=== PATIENT | male | born 1980 | race Caucasian/White ===

== ENCOUNTER 2020-02-20 19:13 | Inpatient (IN) | payer BC ==
[~2020-02-20] VITALS: Ht 188 cm; Wt 120.1 kg
[2020-02-20] VITALS (7 sets, daily range): BP systolic 166–203; BP diastolic 101–133
--- NOTE | 2020-02-20 19:25 | PHYS DOC ---
General Adult EDM: Chief Complaint: CHEST PAIN HPI: HPI: Patient is a 39 year old male who was brought here by EMS from work due to substernal chest pain. Symptoms started about 30 minutes ago. Patient has had this pain off and on for a week. Patient denies any medical problem, he is a smoker. Patient denies cough or fever, no COVID-19 exposure he said. EMS gave patient 324 mg aspirin, and a dose of nitroglycerin on route here. Patient said the nitroglycerin reduced the pain. Review of Systems: Review of Systems: Constitutional: Denies fever or chills. [] Eyes: Denies change in visual acuity. [] HENT: Denies nasal congestion or sore throat. [] Respiratory: Denies cough or shortness of breath. [] Cardiovascular: Positive for chest pain. GI: Denies abdominal pain, nausea, vomiting, bloody stools or diarrhea. [] : Denies dysuria. [] Musculoskeletal: Denies back pain or joint pain. [] Integument: Denies rash. [] Neurologic: Denies headache, focal weakness or sensory changes. [] Endocrine: Denies polyuria or polydipsia. [] Lymphatic: Denies swollen glands. [] Psychiatric: Denies depression or anxiety. [] Heart Score: Risk Factors: Risk Factors: DM, Current or recent (<one month) smoker, HTN, HLP, family history of CAD, obesity. Risk Scores: Score 0 - 3: 2.5% MACE over next 6 weeks - Discharge Home Score 4 - 6: 20.3% MACE over next 6 weeks - Admit for Clinical Observation Score 7 - 10: 72.7% MACE over next 6 weeks - Early Invasive Strategies Current Medications: Current Medications Medications (Trade) Dose Ordered Sig/Danny Start Time Stop Time Status Last Admin Dose Admin Heparin Sodium/ Dextrose 250 ml @ 0 mls/hr CONT PRN 02/20/20 19:30 UNV Physical Exam: PE: Constitutional: Well developed, well nourished, no acute distress, non-toxic appearance. [] HENT: Normocephalic, atraumatic, bilateral external ears normal, oropharynx moist, no oral exudates, nose normal. [] Eyes: PERRLA, EOMI, conjunctiva normal, no discharge. [] Neck: Normal range of motion, no tenderness, supple, no stridor. [] Cardiovascular:Heart rate regular rhythm, no murmur [] Lungs & Thorax: Bilateral breath sounds clear to auscultation [] Abdomen: Bowel sounds normal, soft, no tenderness, no masses, no pulsatile masses. [] Skin: Warm, dry, no erythema, no rash. [] Back: No tenderness, no CVA tenderness. [] Extremities: No tenderness, no cyanosis, no clubbing, ROM intact, no edema. [] Neurologic: Alert and oriented X 3, normal motor function, normal sensory function, no focal deficits noted. [] Psychologic: Affect normal, judgement normal, mood normal. [] Current Patient Data: Labs: Laboratory Tests Test 02/20/20 19:19 02/20/20 22:22 02/21/20 01:09 White Blood Count 10.7 x10^3/uL Red Blood Count 5.10 x10^6/uL Hemoglobin 14.9 g/dL Hematocrit 43.7 % Mean Corpuscular Volume 86 fL Mean Corpuscular Hemoglobin 29 pg Mean Corpuscular Hemoglobin Concent 34 g/dL Red Cell Distribution Width 14.6 % Platelet Count 503 x10^3/uL Neutrophils (%) (Auto) 60 % Lymphocytes (%) (Auto) 26 % Monocytes (%) (Auto) 10 % Eosinophils (%) (Auto) 4 % Basophils (%) (Auto) 1 % Neutrophils # (Auto) 6.4 x10^3/uL Lymphocytes # (Auto) 2.8 x10^3/uL Monocytes # (Auto) 1.0 x10^3/uL Eosinophils # (Auto) 0.4 x10^3/uL Basophils # (Auto) 0.1 x10^3/uL Prothrombin Time 12.9 SEC Prothromb Time International Ratio 1.0 Activated Partial Thromboplast Time 31 SEC Sodium Level 140 mmol/L Potassium Level 4.0 mmol/L Chloride Level 102 mmol/L Carbon Dioxide Level 27 mmol/L Anion Gap 11 Blood Urea Nitrogen 12 mg/dL Creatinine 1.1 mg/dL Estimated GFR (Cockcroft-Gault) 74.5 BUN/Creatinine Ratio 11 Glucose Level 181 mg/dL Calcium Level 9.8 mg/dL Magnesium Level 2.2 mg/dL Total Bilirubin 0.2 mg/dL Aspartate Amino Transf (AST/SGOT) 23 U/L Alanine Aminotransferase (ALT/SGPT) 34 U/L Alkaline Phosphatase 56 U/L Troponin I Quantitative 1.991 ng/mL 16.442 ng/mL 33.819 ng/mL HZ-Gwb-Y-Type Natriuretic Peptide 276 pg/mL Total Protein 8.0 g/dL Albumin 4.1 g/dL Albumin/Globulin Ratio 1.1 Lipase 133 U/L Current Medications Medications (Trade) Dose Ordered Sig/Danny Route PRN Reason Start Time Stop Time Status Last Admin Dose Admin Heparin Sodium/ Dextrose 250 ml @ 0 mls/hr CONT PRN IV PER PROTOCOL 02/20/20 19:30 02/20/20 19:39 Heparin Sodium (Porcine) (Heparin Sodium) 10,000 unit STK-MED ONCE .ROUTE 02/20/20 19:28 02/20/20 19:28 DC Nitroglycerin/ Dextrose 250 ml @ 0 mls/hr 1X ONCE IV 02/20/20 19:30 02/20/20 19:32 DC 02/20/20 19:41 Heparin Sodium (Porcine) (Heparin Sodium) 4,000 unit 1X ONCE IV 02/20/20 19:45 02/20/20 19:46 DC 02/20/20 19:42 Iodixanol (Visipaque 320) 100 ml STK-MED ONCE .ROUTE 02/20/20 19:48 02/20/20 19:48 DC Lidocaine HCl (Lidocaine 1% 20ml Vial) 20 ml STK-MED ONCE .ROUTE 02/20/20 19:48 02/20/20 19:48 DC Heparin Sodium/ Sodium Chloride 1,000 ml @ As Directed STK-MED ONCE .ROUTE 02/20/20 19:48 02/20/20 19:48 DC Fentanyl Citrate (Fentanyl 2ml Vial) 100 mcg STK-MED ONCE .ROUTE 02/20/20 19:54 02/20/20 19:55 DC Midazolam HCl (Versed) 2 mg STK-MED ONCE .ROUTE 02/20/20 19:54 02/20/20 19:55 DC Heparin Sodium (Porcine) (Heparin Sodium) 10,000 unit STK-MED ONCE .ROUTE 02/20/20 19:55 02/20/20 19:55 DC Verapamil HCl (Verapamil) 5 mg STK-MED ONCE .ROUTE 02/20/20 19:55 02/20/20 19:55 DC Nitroglycerin (Nitroglycerin) 200 mcg STK-MED ONCE .ROUTE 02/20/20 19:55 02/20/20 19:55 DC Nitroglycerin (Nitroglycerin) 200 mcg 1X ONCE IART 02/20/20 20:00 02/20/20 20:18 DC 02/20/20 20:00 Verapamil HCl (Verapamil) 2.5 mg 1X ONCE IART 02/20/20 20:00 02/20/20 20:18 DC 02/20/20 20:00 Heparin Sodium (Porcine) (Heparin Sodium) 2,500 unit 1X ONCE IART 02/20/20 20:00 02/20/20 20:18 DC 02/20/20 20:00 Heparin Sodium/ Sodium Chloride (HEPARIN for ARTERIAL LINE FLUSH) 1,000 unit 1X ONCE IART 02/20/20 20:00 02/20/20 20:18 DC 02/20/20 20:00 Heparin Sodium/ Sodium Chloride (HEPARIN for ARTERIAL LINE FLUSH) 1,000 unit 1X ONCE IART 02/20/20 20:00 02/20/20 20:18 DC 02/20/20 20:00 Midazolam HCl (Versed) 2 mg 1X ONCE IV 02/20/20 20:00 02/20/20 20:18 DC 02/20/20 19:58 Fentanyl Citrate (Fentanyl 2ml Vial) 100 mcg 1X ONCE IV 02/20/20 20:00 02/20/20 20:18 DC 02/20/20 19:58 Iodixanol (Visipaque 320) 100 ml 1X ONCE IART 02/20/20 20:00 02/20/20 20:18 DC 02/20/20 20:55 Lidocaine HCl (Lidocaine 1% 20ml Vial) 20 ml 1X ONCE INJ 02/20/20 20:00 02/20/20 20:18 DC 02/20/20 20:00 Bivalirudin (Angiomax) 250 mg STK-MED ONCE IV 02/20/20 20:09 02/20/20 20:09 DC Info (CONTRAST GIVEN -- Rx MONITORING) 1 each PRN DAILY PRN MC SEE COMMENTS 02/20/20 20:30 02/22/20 20:29 Fentanyl Citrate (Fentanyl 2ml Vial) 100 mcg STK-MED ONCE .ROUTE 02/20/20 20:26 02/20/20 20:26 DC Bivalirudin (Angiomax) 250 mg STK-MED ONCE IV 02/20/20 20:30 02/20/20 20:30 DC Iodixanol (Visipaque 320) 100 ml STK-MED ONCE .ROUTE 02/20/20 20:36 02/20/20 20:36 DC Bivalirudin (Angiomax) 250 mg 1X ONCE IV 02/20/20 20:45 02/20/20 20:46 DC 02/20/20 20:13 EKG: EKG: EKG was done at 1917, heart rate of 112 bpm, sinus tachycardia, ST SEGMENT ELEVATION IN V2, V3, V4, V5. Radiology/Procedures: Radiology/Procedures: [] Course & Med Decision Making: Course & Med Decision Making Pertinent Labs and Imaging studies reviewed. (See chart for details) Dr. Galdamez, home child care provider, was here at 7:38 PM. Patient will be taken to [facility]. Dragon Disclaimer: Dragon Disclaimer: This electronic medical record was generated, in whole or in part, using a voice recognition dictation system. Departure Departure Impression: Primary Impression: STEMI (ST elevation myocardial infarction) Disposition: 09 ADMITTED INPT THIS HOSP Admitting Physician: MISTY Condition: STABLE ALMA RENTERIA DO Feb 20, 2020 19:25
[2020-02-20 19:28] LABS: BASO # 0.1 x10^3/uL (0.0-0.2); BASO % 1 % (0-3); EOS # 0.4 x10^3/uL (0.0-0.7); EOS % 4 % (0-3); HEMATOCRIT 43.7 % (39.0-53.0); HEMOGLOBIN 14.9 g/dL (13.0-17.5); LYMPH # 2.8 x10^3/uL (1.0-4.8); LYMPH % 26 % (24-48); MEAN CORPUSCULAR HEMOGLOBIN 29 pg (25-35); MEAN CORPUSCULAR HGB CONC 34 g/dL (31-37); MEAN CORPUSCULAR VOLUME 86 fL (79-100); MONO % 10 % (0-9); NEUT # 6.4 x10^3/uL (1.8-7.7); NEUT % 60 % (31-73); PLATELET COUNT 503 x10^3/uL (140-400); RED CELL DISTRIBUTION WIDTH 14.6 % (11.5-14.5); WHITE BLOOD COUNT 10.7 x10^3/uL (4.0-11.0)
[2020-02-20] MEDS ORDERED: HEPARIN for IV BOLUS 10,000 UNIT/10 ML VIAL. ONE ×2 (19:28→19:55)
[2020-02-20] MEDS ORDERED: NITROGLYCERIN PREMIX 250 ML IV ONE (19:30)
[2020-02-20] MEDS ORDERED: HEPARIN 25,000UTS/250ML PREMIX 250 ML IV PRN (19:30)
[2020-02-20 19:38] LABS: CALCIUM 9.8 mg/dL (8.5-10.1); CREATININE 1.1 mg/dL (0.7-1.3); GFR 74.5; PROTHROMBIN TIME PATIENT 12.9 SEC (11.7-14.0)
[2020-02-20 19:44] LABS: ALBUMIN 4.1 g/dL (3.4-5.0); ALBUMIN/GLOBULIN RATIO 1.1 (1.0-1.7); MAGNESIUM 2.2 mg/dL (1.8-2.4); TOTAL BILIRUBIN 0.2 mg/dL (0.2-1.0)
[2020-02-20] MEDS ORDERED: HEPARIN for IV BOLUS 10,000 UNIT/10 ML VIAL. IV ONE (19:45)
[2020-02-20] MEDS ORDERED: IODIXANOL 320 MG/ML 100 ML VIAL. ONE ×2 (19:48→20:36)
[2020-02-20] MEDS ORDERED: LIDOCAINE 1% Multi-Dose 20 ML VIAL. ONE (19:48)
--- NOTE | 2020-02-20 19:52 | PDOC2 ---
CONSULT Date of Consult Date of Consult DATE: 02/20/20 TIME: 19:52 Reason for Consult Reason for Consult: Acute ST elevation myocardial infarction Referring Physician Referring Physician: Dr. Rodriges Identification/Chief Complaint Chief Complaint Chest pain Source Source: Chart review, Patient History of Present Illness Reason for Visit: 39-year-old male without any previous cardiac history apparently had been having intermittent episodes of retrosternal chest pressure for the past 1 week. This pain got worse and became continuous, 30 minutes prior to presentation when he was at work. EKG by EMS showed anterior ST elevations and code STEMI was activated. Patient was given aspirin and nitroglycerin with decrease in pain from 10/10 severity to 5/10 severity upon my examination. He had associated diaphoresis and mild shortness of breath but denied any orthopnea/PND, palpitations or syncope. Past Medical History Cardiovascular: No pertinent hx Past Surgical History Past Surgical History: No pertinent history Family History Family History Positive for hypertension and coronary disease Social History Social History Patient admitted to smoking approximately 1 pack of cigarettes daily but denied any drug abuse Current Medications Current Medications Current Medications Heparin Sodium/ Dextrose 250 ml @ 0 mls/hr CONT PRN IV PER PROTOCOL Last administered on 02/20/20at 19:39; Start 02/20/20 at 19:30 Heparin Sodium (Porcine) (Heparin Sodium) 10,000 unit STK-MED ONCE .ROUTE ; Start 02/20/20 at 19:28; Stop 02/20/20 at 19:28; Status DC Nitroglycerin/ Dextrose 250 ml @ 0 mls/hr 1X ONCE IV Last administered on 02/20/20at 19:41; Start 02/20/20 at 19:30; Stop 02/20/20 at 19:32; Status DC Heparin Sodium (Porcine) (Heparin Sodium) 4,000 unit 1X ONCE IV Last administered on 02/20/20at 19:42; Start 02/20/20 at 19:45; Stop 02/20/20 at 19:46; Status DC Iodixanol (Visipaque 320) 100 ml STK-MED ONCE .ROUTE ; Start 02/20/20 at 19:48; Stop 02/20/20 at 19:48; Status DC Lidocaine HCl (Lidocaine 1% 20ml Vial) 20 ml STK-MED ONCE .ROUTE ; Start 02/20/20 at 19:48; Stop 02/20/20 at 19:48; Status DC Heparin Sodium/ Sodium Chloride 1,000 ml @ As Directed STK-MED ONCE .ROUTE ; Start 02/20/20 at 19:48; Stop 02/20/20 at 19:48; Status DC Allergies Allergies: Coded Allergies: No Known Drug Allergies (Unverified , 02/20/20) ROS PSYCHOLOGICAL ROS: No: Hallucinations Eyes: No Loss of vision HEENT: No: Epistaxis Respiratory: YES: Shortness of breath; No: Hemoptysis Cardiovascular: yes Chest Pain Gastrointestinal: No Vomiting, No Diarrhea Genitourinary: No Hematuria Neurological: No Seizures Skin: No Rash Physical Exam General: Alert, Oriented X3, mild distress HEENT: Atraumatic Lungs: Clear to auscultation Heart: Regular rate Abdomen: Soft Extremities: No edema Skin: No rashes Psych/Mental Status: Mood NL Labs Labs Laboratory Tests Test 02/20/20 19:19 White Blood Count 10.7 x10^3/uL (4.0-11.0) Red Blood Count 5.10 x10^6/uL (4.30-5.70) Hemoglobin 14.9 g/dL (13.0-17.5) Hematocrit 43.7 % (39.0-53.0) Mean Corpuscular Volume 86 fL (79-100) Mean Corpuscular Hemoglobin 29 pg (25-35) Mean Corpuscular Hemoglobin Concent 34 g/dL (31-37) Red Cell Distribution Width 14.6 % (11.5-14.5) Platelet Count 503 x10^3/uL (140-400) Neutrophils (%) (Auto) 60 % (31-73) Lymphocytes (%) (Auto) 26 % (24-48) Monocytes (%) (Auto) 10 % (0-9) Eosinophils (%) (Auto) 4 % (0-3) Basophils (%) (Auto) 1 % (0-3) Neutrophils # (Auto) 6.4 x10^3/uL (1.8-7.7) Lymphocytes # (Auto) 2.8 x10^3/uL (1.0-4.8) Monocytes # (Auto) 1.0 x10^3/uL (0.0-1.1) Eosinophils # (Auto) 0.4 x10^3/uL (0.0-0.7) Basophils # (Auto) 0.1 x10^3/uL (0.0-0.2) Prothrombin Time 12.9 SEC (11.7-14.0) Prothromb Time International Ratio 1.0 (0.8-1.1) Activated Partial Thromboplast Time 31 SEC (24-38) Sodium Level 140 mmol/L (136-145) Potassium Level 4.0 mmol/L (3.5-5.1) Chloride Level 102 mmol/L (98-107) Carbon Dioxide Level 27 mmol/L (21-32) Anion Gap 11 (6-14) Blood Urea Nitrogen 12 mg/dL (8-26) Creatinine 1.1 mg/dL (0.7-1.3) Estimated GFR (Cockcroft-Gault) 74.5 BUN/Creatinine Ratio 11 (6-20) Glucose Level 181 mg/dL (70-99) Calcium Level 9.8 mg/dL (8.5-10.1) Magnesium Level 2.2 mg/dL (1.8-2.4) Total Bilirubin 0.2 mg/dL (0.2-1.0) Aspartate Amino Transf (AST/SGOT) 23 U/L (15-37) Alanine Aminotransferase (ALT/SGPT) 34 U/L (16-63) Alkaline Phosphatase 56 U/L (46-116) Troponin I Quantitative 1.991 ng/mL (0.000-0.055) SB-Hsg-F-Type Natriuretic Peptide 276 pg/mL (0-124) Total Protein 8.0 g/dL (6.4-8.2) Albumin 4.1 g/dL (3.4-5.0) Albumin/Globulin Ratio 1.1 (1.0-1.7) Lipase 133 U/L (73-393) Laboratory Tests Test 02/20/20 19:19 White Blood Count 10.7 x10^3/uL (4.0-11.0) Red Blood Count 5.10 x10^6/uL (4.30-5.70) Hemoglobin 14.9 g/dL (13.0-17.5) Hematocrit 43.7 % (39.0-53.0) Mean Corpuscular Volume 86 fL (79-100) Mean Corpuscular Hemoglobin 29 pg (25-35) Mean Corpuscular Hemoglobin Concent 34 g/dL (31-37) Red Cell Distribution Width 14.6 % (11.5-14.5) Platelet Count 503 x10^3/uL (140-400) Neutrophils (%) (Auto) 60 % (31-73) Lymphocytes (%) (Auto) 26 % (24-48) Monocytes (%) (Auto) 10 % (0-9) Eosinophils (%) (Auto) 4 % (0-3) Basophils (%) (Auto) 1 % (0-3) Neutrophils # (Auto) 6.4 x10^3/uL (1.8-7.7) Lymphocytes # (Auto) 2.8 x10^3/uL (1.0-4.8) Monocytes # (Auto) 1.0 x10^3/uL (0.0-1.1) Eosinophils # (Auto) 0.4 x10^3/uL (0.0-0.7) Basophils # (Auto) 0.1 x10^3/uL (0.0-0.2) Prothrombin Time 12.9 SEC (11.7-14.0) Prothromb Time International Ratio 1.0 (0.8-1.1) Activated Partial Thromboplast Time 31 SEC (24-38) Sodium Level 140 mmol/L (136-145) Potassium Level 4.0 mmol/L (3.5-5.1) Chloride Level 102 mmol/L (98-107) Carbon Dioxide Level 27 mmol/L (21-32) Anion Gap 11 (6-14) Blood Urea Nitrogen 12 mg/dL (8-26) Creatinine 1.1 mg/dL (0.7-1.3) Estimated GFR (Cockcroft-Gault) 74.5 BUN/Creatinine Ratio 11 (6-20) Glucose Level 181 mg/dL (70-99) Calcium Level 9.8 mg/dL (8.5-10.1) Magnesium Level 2.2 mg/dL (1.8-2.4) Total Bilirubin 0.2 mg/dL (0.2-1.0) Aspartate Amino Transf (AST/SGOT) 23 U/L (15-37) Alanine Aminotransferase (ALT/SGPT) 34 U/L (16-63) Alkaline Phosphatase 56 U/L (46-116) Troponin I Quantitative 1.991 ng/mL (0.000-0.055) AD-Nko-R-Type Natriuretic Peptide 276 pg/mL (0-124) Total Protein 8.0 g/dL (6.4-8.2) Albumin 4.1 g/dL (3.4-5.0) Albumin/Globulin Ratio 1.1 (1.0-1.7) Lipase 133 U/L (73-393) Assessment/Plan Assessment/Plan 1. Acute anterior wall ST elevation myocardial infarction. Patient has ongoing chest pain. We will proceed with emergent cardiac catheterization and possible primary PCI/stent placement. Risks and benefits were explained and he is agreeable. Patient already received aspirin. Start heparin, beta-blockers and statin therapy. 2. Accelerated hypertension: Start beta-blockers as stated above. If blood pressure is still not controlled, we will consider starting losartan. 3. Tobacco abuse: Importance of smoking cessation emphasized. Thank you for your consultation. YAO LEON MD Feb 20, 2020 19:52
--- NOTE | 2020-02-20 19:53 | PDOC ---
MODERATE SEDATION ASSESSMENT RISKS/ALTERNATIVES Risks/Alternatives Risks and alternatives of this type of sedation and procedure discussed with: RISK/ALTERNATIVES: Patient H & P ON CHART H & P H & P on chart and reviewed for co-morbid conditions and appropriate labs. H&P ON CHART: Yes STATUS PREG STATUS ASSESSED: N/A MEDS/ALLERGIES REVIEWED Meds/Allergies Reviewed Medications and Allergies including time and route of recently administered narcotics and sedatives. MEDS/ALLERGIES REVIEWED: Yes ASA RATING ASA RATING: II AIRWAY ASSESSMENT Airway Assessment Airway patency, oral function limitations, presence of caps, crowns, dentures, partials, and ability to extend neck assessed. AIRWAY ASSESSMENT: Yes MALLAMPATI SCORE MALLAMPATI SCORE: II PRE-SEDATION ASSESSMENT PRE-SEDATION ASSESSMENT: Yes YAO LEON MD Feb 20, 2020 19:52
[2020-02-20] MEDS ORDERED: MIDAZOLAM HCL/PF 2 MG/2 ML VIAL. ONE (19:54)
[2020-02-20] MEDS ORDERED: fentaNYL PF VIAL 100 MCG/2 ML VIAL ONE ×2 (19:54→20:26)
[2020-02-20] MEDS ORDERED: VERAPAMIL 5 MG/2 ML VIAL. ONE (19:55)
[2020-02-20] MEDS ORDERED: NITROGLYCERIN 200 MCG/2 ML SYRINGE FOR CATH/VASC LAB. ONE (19:55)
[2020-02-20] MEDS ORDERED: IODIXANOL 320 MG/ML 100 ML VIAL. IART ONE (20:00)
[2020-02-20] MEDS ORDERED: MIDAZOLAM HCL/PF 2 MG/2 ML VIAL. IV ONE (20:00)
[2020-02-20] MEDS ORDERED: HEPARIN for IV BOLUS 10,000 UNIT/10 ML VIAL. IART ONE (20:00)
[2020-02-20] MEDS ORDERED: VERAPAMIL 5 MG/2 ML VIAL. IART ONE (20:00)
[2020-02-20] MEDS ORDERED: LIDOCAINE 1% Multi-Dose 20 ML VIAL. INJ ONE (20:00)
[2020-02-20] MEDS ORDERED: NITROGLYCERIN 200 MCG/2 ML SYRINGE FOR CATH/VASC LAB. IART ONE (20:00)
[2020-02-20] MEDS ORDERED: fentaNYL PF VIAL 100 MCG/2 ML VIAL IV ONE (20:00)
[2020-02-20] MEDS ORDERED: BIVALIRUDIN 250 MG VIAL. IV ONE ×4 (20:09→21:00)
[2020-02-20] MEDS ORDERED: CONTRAST GIVEN. MC PRN (20:30)
[2020-02-20] MEDS ORDERED: IV 1/2 NORMAL SALINE 1,000 ML IV SCH (20:59)
[2020-02-20] MEDS ORDERED: LOSARTAN POTASSIUM 50 MG TABLET. PO SCH (21:00)
[2020-02-20] MEDS ORDERED: METOPROLOL TART IMMED RELEASE 25 MG TABLET. PO SCH (21:00)
[2020-02-20] MEDS ORDERED: ACETAMINOPHEN 325 MG TABLET. PO PRN (21:00)
[2020-02-20] MEDS ORDERED: NITROGLYCERIN SUBLINGUAL 0.4 MG BOTTLE OF 25. SL PRN (21:00)
[2020-02-20] MEDS ORDERED: TICAGRELOR 90 MG TABLET. ONE (21:08)
[2020-02-20] MEDS ORDERED: TICAGRELOR 90 MG TABLET. PO ONE (21:15)
[2020-02-20] MEDS: ATORVASTATIN CALCIUM 40 MG TABLET. PO SCH (22:12)
[2020-02-20] MEDS ORDERED: LABETALOL 20 MG/4 ML DISP.SYRIN. IVP PRN (22:30)
--- NOTE | 2020-02-20 23:13 | NUR ---
Patient admitted to room 268 via bed accompanied by blender laborer staff at 2125. Patient hooked up to ICU monitors. Patient A&Ox4, SR/ST on monitor, RA, patent IVx2 present, Angiomax infusion finishing up, no complaints of pain at this time. Patient has R radial cath site with TR band present and 11 cc of air. Patient states he does not take home medications and his only history is current smoker, spinal meningitis as a child, and he had some teeth pulled last week. Patient given a cup of water and a urinal and medications for BP/cholesterol given. Patient stable at this time. and daughter stayed at bedside for about 10 minutes before leaving--will return in AM. Will continue to monitor and take air out of TR band.
--- NOTE | 2020-02-20 23:26 | RAD ---
PORTABLE CHEST 1V Clinical History: Reason: CHEST PAIN. HEART CATH INSERTION / Spl. Instructions: / History: Technique: AP view of the chest was obtained at 02/20/2020 7:19 PM. Comparison: None. Findings: The cardiomediastinal silhouette is normal. The pulmonary vasculature is normal. The lungs and pleural margins are clear. Impression: No evidence of an acute cardiopulmonary process. Electronically signed by: Fco Holliday III, MD (02/20/2020 11:24 PM) [facility]
[2020-02-21] VITALS (15 sets, daily range): BP systolic 125–197; BP diastolic 80–135
[2020-02-21] MEDS ORDERED: METOPROLOL TART IMMED RELEASE 50 MG TABLET. PO ONE (01:45)
[2020-02-21] MEDS ORDERED: LOSARTAN POTASSIUM 50 MG TABLET. PO ONE ×2 (01:45→12:00)
[2020-02-21 04:45] LABS: BASO # 0.1 x10^3/uL (0.0-0.2); BASO % 1 % (0-3); EOS # 0.2 x10^3/uL (0.0-0.7); EOS % 2 % (0-3); HEMATOCRIT 42.2 % (39.0-53.0); HEMOGLOBIN 14.1 g/dL (13.0-17.5); LYMPH # 2.5 x10^3/uL (1.0-4.8); LYMPH % 18 % (24-48); MEAN CORPUSCULAR HEMOGLOBIN 29 pg (25-35); MEAN CORPUSCULAR HGB CONC 33 g/dL (31-37); MEAN CORPUSCULAR VOLUME 86 fL (79-100); MONO # 1.2 x10^3/uL (0.0-1.1); MONO % 9 % (0-9); NEUT # 9.5 x10^3/uL (1.8-7.7); NEUT % 70 % (31-73); PLATELET COUNT 463 x10^3/uL (140-400); RED BLOOD COUNT 4.89 x10^6/uL (4.30-5.70); RED CELL DISTRIBUTION WIDTH 14.5 % (11.5-14.5); WHITE BLOOD COUNT 13.6 x10^3/uL (4.0-11.0)
[2020-02-21 05:00] LABS: CALCIUM 9.2 mg/dL (8.5-10.1); CREATININE 0.8 mg/dL (0.7-1.3); GFR 107.6; POTASSIUM 3.9 mmol/L (3.5-5.1)
--- NOTE | 2020-02-21 08:20 | CARD ---
MR#: [id number] Date of Study: 02/20/2020 Ordering Physician: YAO GALDAMEZ, Referring Physician: YAO GALDAMEZ, Tech: RT Verónica (Heidi) DEBORA APPROVED REPORT Technologist: RT Verónica (R) DEBORA Nurse: Shelley Son RN Procedure(s) performed: 1. Left heart catheterization, selective coronary angiography and left ventr iculography via right transradial approach. 2. Successful PCI/drug-eluting stents placement to the left anterior descending and left circumflex arteries. flouro time 18.3 minutes dose 243 Gycm2 contrast 349 cc's visipaque moderate sedation 72 minutes INDICATION The indication(s) include : Acute anterior wall ST elevation myocardial infarction. [facility] Clinical Frailty Scale [facility] Clinical Frailty Scale: Managing Well Heart Failure Heart Failure: No PROCEDURE NARRATIVE After explaining the risks, benefits and alternative options, informed consent was obtained from sonia ent. Patient was brought to the cardiac Sign Board Erector and right wrist was prepped and draped in the usual fashion after confirming a positive modified Owen's test. Arterial access was obtained in the righ t radial artery and a 6 Maldivian sheath was inserted. 6 Maldivian Abraham catheter was used to perform mann ective angiography of the left and right coronary arteries. 6 Maldivian pigtail catheter was used to pe rform left ventriculography. The following findings were noted. FINDINGS 1. Hemodynamics: Elevated left ventricular end-diastolic pressure of 32 mmHg consistent with combine d acute diastolic and systolic heart failure. No pullback gradient across the aortic valve. 2. Left ventriculography: Hypokinesis of the mid to distal anterior wall and apical wall with ejecti on fraction estimated at 35 to 40%. No significant mitral regurgitation seen. 3. Coronary angiography: a. The left main coronary artery arose from the left sinus of Valsalva, gave rise to the left anteri or descending, ramus intermedius and left circumflex arteries and did not show any significant stenos is. b. The left anterior descending artery showed critical 95% bifurcation stenosis involving the mid se gment of LAD and a small caliber diagonal branch. c. The ramus intermedius artery did not show any significant stenosis. d. The left circumflex artery showed 80% stenosis the proximal segment of the obtuse marginal branch . Just distal to this lesion there was another 40% stenosis noted. e. The right coronary artery was a large and dominant vessel arising from the right sinus of Valsalv a that did not show any significant stenosis. INTERVENTION The left main coronary artery was engaged with a 6 Maldivian XB 3.5 guide catheter. The stenosis in the mid segment of the left anterior descending artery was crossed with a 0.014 inch [employer] guid ewire. This was predilated with a 3.0 x 12 mm Euphora balloon. Following this, this was successfull y treated with a 3.0 x 18 mm resolute Anand drug-eluting stent. Follow-up angiography showed resoluti on of the lesion with KARTHIK-3 distal flow. Since patient continued to complain of chest pain, we deci ded to intervene on the left circumflex artery stenosis as well. The stenosis in the obtuse marginal branch was crossed with the [employer] guidewire. This was predilated with 3.0 x 12 mm Euphora balloon and treated with a 3.0 x 18 mm resolute Anand drug-eluting stent. Follow-up angiography showe d resolution of the lesion with KARTHIK-3 distal flow. Patient tolerated the procedure well. Hemostasi s was achieved using TR band. There were no immediate complications. KARTHIK Flow AKRTHIK Flow (Pre-Intervention): KARTHIK-2 KARTHIK Flow (Post-Intervention): KARTHIK-3 KARTHIK Flow KARTHIK Flow (Pre-Intervention): KARTHIK-3 KARTHIK Flow (Post-Intervention): KARTHIK-3 Conclusion 1. Severe two-vessel coronary disease involving the left anterior descending artery (culprit vessel for patient STEMI) and obtuse marginal branch of left circumflex artery 2. Successful PCI/drug-eluting stents placement to the left anterior descending artery and the obtus e marginal branch of left circumflex artery 3. Hypokinesis of the mid to distal anterior wall and apical wall with ejection fraction estimated a t 35 to 40% 4. Elevated left ventricular end-diastolic pressure consistent with acute combined systolic and valerio tolic heart failure Recommendations 1. Aspirin 81 mg daily 2. Ticagrelor 90 mg twice daily 3. Cardiovascular risk factor modification including smoking cessation 4. Cardiac rehabilitation referral Signed by : Yao Galdamez, Electronically Approved : 02/21/2020 08:19:54
[2020-02-21 08:40] LABS: CHOLESTEROL/HDL RATIO 4.2
[2020-02-21] MEDS: TICAGRELOR 90 MG TABLET. PO SCH ×2 (08:41→20:13)
[2020-02-21] MEDS: ASPIRIN ENTERIC COATED 81 MG TABLET.DR. PO SCH (08:41)
[2020-02-21] MEDS: METOPROLOL TART IMMED RELEASE 25 MG TABLET. PO SCH ×2 (08:43→20:13)
[2020-02-21] MEDS ORDERED: LOSARTAN POTASSIUM 50 MG TABLET. PO SCH (09:00)
--- NOTE | 2020-02-21 09:51 | PDOC ---
SEUN PACHECO ROLDAN 02/21/20 0950: CARDIO Progress Notes Date and Time Date of Service 02/21/20 Time of Evaluation 0940 Subjective Subjective: No Chest Pain, No shortness of breath, No Palpitations Vitals Vitals Vital Signs Date Time Temp Pulse Resp B/P (MAP) Pulse Ox O2 Delivery O2 Flow Rate FiO2 02/21/20 08:44 85 160/117 02/21/20 08:00 Room Air 02/21/20 08:00 98.4 18 99 98.4 02/20/20 21:18 2.0 Weight Weight [ ] Input and Output Intake and Output Intake and Output 02/21/20 07:00 Intake Total 716 ml Output Total 1550 ml Balance -834 ml Intake IV Total 716 ml Output Urine Total 1550 ml Laboratory Labs Laboratory Tests Test 02/20/20 19:19 02/20/20 22:22 02/21/20 01:09 White Blood Count 10.7 x10^3/uL (4.0-11.0) 13.6 x10^3/uL (4.0-11.0) Red Blood Count 5.10 x10^6/uL (4.30-5.70) 4.89 x10^6/uL (4.30-5.70) Hemoglobin 14.9 g/dL (13.0-17.5) 14.1 g/dL (13.0-17.5) Hematocrit 43.7 % (39.0-53.0) 42.2 % (39.0-53.0) Mean Corpuscular Volume 86 fL (79-100) 86 fL (79-100) Mean Corpuscular Hemoglobin 29 pg (25-35) 29 pg (25-35) Mean Corpuscular Hemoglobin Concent 34 g/dL (31-37) 33 g/dL (31-37) Red Cell Distribution Width 14.6 % (11.5-14.5) 14.5 % (11.5-14.5) Platelet Count 503 x10^3/uL (140-400) 463 x10^3/uL (140-400) Neutrophils (%) (Auto) 60 % (31-73) 70 % (31-73) Lymphocytes (%) (Auto) 26 % (24-48) 18 % (24-48) Monocytes (%) (Auto) 10 % (0-9) 9 % (0-9) Eosinophils (%) (Auto) 4 % (0-3) 2 % (0-3) Basophils (%) (Auto) 1 % (0-3) 1 % (0-3) Neutrophils # (Auto) 6.4 x10^3/uL (1.8-7.7) 9.5 x10^3/uL (1.8-7.7) Lymphocytes # (Auto) 2.8 x10^3/uL (1.0-4.8) 2.5 x10^3/uL (1.0-4.8) Monocytes # (Auto) 1.0 x10^3/uL (0.0-1.1) 1.2 x10^3/uL (0.0-1.1) Eosinophils # (Auto) 0.4 x10^3/uL (0.0-0.7) 0.2 x10^3/uL (0.0-0.7) Basophils # (Auto) 0.1 x10^3/uL (0.0-0.2) 0.1 x10^3/uL (0.0-0.2) Prothrombin Time 12.9 SEC (11.7-14.0) Prothromb Time International Ratio 1.0 (0.8-1.1) Activated Partial Thromboplast Time 31 SEC (24-38) Sodium Level 140 mmol/L (136-145) 136 mmol/L (136-145) Potassium Level 4.0 mmol/L (3.5-5.1) 3.9 mmol/L (3.5-5.1) Chloride Level 102 mmol/L (98-107) 100 mmol/L (98-107) Carbon Dioxide Level 27 mmol/L (21-32) 24 mmol/L (21-32) Anion Gap 11 (6-14) 12 (6-14) Blood Urea Nitrogen 12 mg/dL (8-26) 11 mg/dL (8-26) Creatinine 1.1 mg/dL (0.7-1.3) 0.8 mg/dL (0.7-1.3) Estimated GFR (Cockcroft-Gault) 74.5 107.6 BUN/Creatinine Ratio 11 (6-20) Glucose Level 181 mg/dL (70-99) 108 mg/dL (70-99) Calcium Level 9.8 mg/dL (8.5-10.1) 9.2 mg/dL (8.5-10.1) Magnesium Level 2.2 mg/dL (1.8-2.4) Total Bilirubin 0.2 mg/dL (0.2-1.0) Aspartate Amino Transf (AST/SGOT) 23 U/L (15-37) Alanine Aminotransferase (ALT/SGPT) 34 U/L (16-63) Alkaline Phosphatase 56 U/L (46-116) Troponin I Quantitative 1.991 ng/mL (0.000-0.055) 16.442 ng/mL (0.000-0.055) 33.819 ng/mL (0.000-0.055) JC-Lpg-D-Type Natriuretic Peptide 276 pg/mL (0-124) Total Protein 8.0 g/dL (6.4-8.2) Albumin 4.1 g/dL (3.4-5.0) Albumin/Globulin Ratio 1.1 (1.0-1.7) Lipase 133 U/L (73-393) SARS-CoV-2 Antigen (Rapid) Negative (NEGATIVE) Triglycerides Level 302 mg/dL (0-150) Cholesterol Level 154 mg/dL (0-200) LDL Cholesterol, Calculated 57 mg/dL (0-100) VLDL Cholesterol, Calculated 60 mg/dL (0-40) Non-HDL Cholesterol Calculated 117 mg/dL (0-129) HDL Cholesterol 37 mg/dL (40-60) Cholesterol/HDL Ratio 4.2 Physical Exam HEENT: Neck Supple W Full Motion Chest: Symmetric LUNGS: Clear to Auscultation Heart: RRR Abdomen: Soft N/T Extremities: No Edema, Other (right radial arteriotomy site soft, clean, and dry. No ecchymosis. Neurovscular status intact. ) Neurology: alert, oriented, follow commands Assessment Assessment 1. STEMI 2. CAD; two-vessel disease. S/p successful PCI/GISELLA to the LAD and OM brand of LCx 3. Acute on chronic combined diastolic/systolic CHF; cath with elevated LVEDP 4. Ischemic cardiomyopathy; cath showed hypokinesis of the mid to distal anterior and apical wall with estimated LVEF 35 to 40% 5. Hypertension; labile 6. Dyslipidemia 7. Elevated glucose 8. Tobaccoism; discussed/encouraged cessation Recommendations Echo to assess LV systolic function HgA1C Secondary prevention including DAPT with ASA/Brilinta and high dose statin therapy Continue metoprolol, losartan; uptitrate losartan as warranted Risk stratification modification Cardiac rehab referral Will monitor overnight and plan for discharge in am. Justicifation of Admission Dx: Justifications for Admission: Justification of Admission Dx: Yes IN: Acute STEMI YAO LEON MD 02/21/20 1821: CARDIO Progress Notes Assessment Assessment Patient seen and examined. 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 s/p PCI/GISELLA to LAD and LCX, currently CP free Ac systolic and diastolic HF better compensated BP better controlled but still high - increase losartan dose for better control 2D echo showed EF 30-35%. Plan repeat echo in 3 mos to evaluate need for ICD implantation Consider Lifevest upon DC - probably tomorrow SEUN PACHECO APRN Feb 21, 2020 09:50 YAO LEON MD Feb 21, 2020 18:21
--- NOTE | 2020-02-21 09:58 | PDOC1 ---
History and Physical Date of Admission Date of Admission DATE: 02/21/20 TIME: 09:58 Identification/Chief Complaint Chief Complaint SEEN IN ER WITH ACUTE STEMI 39 year old male who was brought here by EMS from work due to substernal chest pain. Symptoms started about 30 minutes ago. Patient has had this pain off and on for a week. Patient denies any medical problem, he is a smoker. Patient denies cough or fever, no COVID-19 exposure he said. EMS gave patient 324 mg aspirin, and a dose of nitroglycerin on route here. 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 Past Medical History Cardiovascular: No pertinent hx, Hyperlipidemia Past Surgical History Past Surgical History: No pertinent history Family History Family History: Heart Disease, High Cholestrol, Hypertension Social History Smoke: <1 pack per day ALCOHOL: occassional Drugs: None Current Problem List Problem List Problems Medical Problems: (1) STEMI (ST elevation myocardial infarction) Status: Acute Current Medications Current Medications Current Medications Heparin Sodium/ Dextrose 250 ml @ 0 mls/hr CONT PRN IV PER PROTOCOL Last administered on 02/20/20at 19:39; Start 02/20/20 at 19:30; Stop 02/21/20 at 09:30; Status DC Heparin Sodium (Porcine) (Heparin Sodium) 10,000 unit STK-MED ONCE .ROUTE ; Start 02/20/20 at 19:28; Stop 02/20/20 at 19:28; Status DC Nitroglycerin/ Dextrose 250 ml @ 0 mls/hr 1X ONCE IV Last administered on 02/20/20at 19:41; Start 02/20/20 at 19:30; Stop 02/20/20 at 19:32; Status DC Heparin Sodium (Porcine) (Heparin Sodium) 4,000 unit 1X ONCE IV Last administered on 02/20/20at 19:42; Start 02/20/20 at 19:45; Stop 02/20/20 at 19:46; Status DC Iodixanol (Visipaque 320) 100 ml STK-MED ONCE .ROUTE ; Start 02/20/20 at 19:48; Stop 02/20/20 at 19:48; Status DC Lidocaine HCl (Lidocaine 1% 20ml Vial) 20 ml STK-MED ONCE .ROUTE ; Start 02/20/20 at 19:48; Stop 02/20/20 at 19:48; Status DC Heparin Sodium/ Sodium Chloride 1,000 ml @ As Directed STK-MED ONCE .ROUTE ; Start 02/20/20 at 19:48; Stop 02/20/20 at 19:48; Status DC Fentanyl Citrate (Fentanyl 2ml Vial) 100 mcg STK-MED ONCE .ROUTE ; Start 02/20/20 at 19:54; Stop 02/20/20 at 19:55; Status DC Midazolam HCl (Versed) 2 mg STK-MED ONCE .ROUTE ; Start 02/20/20 at 19:54; Stop 02/20/20 at 19:55; Status DC Heparin Sodium (Porcine) (Heparin Sodium) 10,000 unit STK-MED ONCE .ROUTE ; Start 02/20/20 at 19:55; Stop 02/20/20 at 19:55; Status DC Verapamil HCl (Verapamil) 5 mg STK-MED ONCE .ROUTE ; Start 02/20/20 at 19:55; Stop 02/20/20 at 19:55; Status DC Nitroglycerin (Nitroglycerin) 200 mcg STK-MED ONCE .ROUTE ; Start 02/20/20 at 19:55; Stop 02/20/20 at 19:55; Status DC Nitroglycerin (Nitroglycerin) 200 mcg 1X ONCE IART Last administered on 02/20/20at 20:00; Start 02/20/20 at 20:00; Stop 02/20/20 at 20:18; Status DC Verapamil HCl (Verapamil) 2.5 mg 1X ONCE IART Last administered on 02/20/20at 20:00; Start 02/20/20 at 20:00; Stop 02/20/20 at 20:18; Status DC Heparin Sodium (Porcine) (Heparin Sodium) 2,500 unit 1X ONCE IART Last administered on 02/20/20at 20:00; Start 02/20/20 at 20:00; Stop 02/20/20 at 20:18; Status DC Heparin Sodium/ Sodium Chloride (HEPARIN for ARTERIAL LINE FLUSH) 1,000 unit 1X ONCE IART Last administered on 02/20/20at 20:00; Start 02/20/20 at 20:00; Stop 02/20/20 at 20:18; Status DC Heparin Sodium/ Sodium Chloride (HEPARIN for ARTERIAL LINE FLUSH) 1,000 unit 1X ONCE IART Last administered on 02/20/20at 20:00; Start 02/20/20 at 20:00; Stop 02/20/20 at 20:18; Status DC Midazolam HCl (Versed) 2 mg 1X ONCE IV Last administered on 02/20/20at 19:58; Start 02/20/20 at 20:00; Stop 02/20/20 at 20:18; Status DC Fentanyl Citrate (Fentanyl 2ml Vial) 100 mcg 1X ONCE IV Last administered on 02/20/20at 19:58; Start 02/20/20 at 20:00; Stop 02/20/20 at 20:18; Status DC Iodixanol (Visipaque 320) 100 ml 1X ONCE IART Last administered on 02/20/20at 20:55; Start 02/20/20 at 20:00; Stop 02/20/20 at 20:18; Status DC Lidocaine HCl (Lidocaine 1% 20ml Vial) 20 ml 1X ONCE INJ Last administered on 02/20/20at 20:00; Start 02/20/20 at 20:00; Stop 02/20/20 at 20:18; Status DC Bivalirudin (Angiomax) 250 mg STK-MED ONCE IV ; Start 02/20/20 at 20:09; Stop 02/20/20 at 20:09; Status DC Info (CONTRAST GIVEN -- Rx MONITORING) 1 each PRN DAILY PRN MC SEE COMMENTS; Start 02/20/20 at 20:30; Stop 02/22/20 at 20:29 Fentanyl Citrate (Fentanyl 2ml Vial) 100 mcg STK-MED ONCE .ROUTE ; Start 02/20/20 at 20:26; Stop 02/20/20 at 20:26; Status DC Bivalirudin (Angiomax) 250 mg STK-MED ONCE IV ; Start 02/20/20 at 20:30; Stop 02/20/20 at 20:30; Status DC Iodixanol (Visipaque 320) 100 ml STK-MED ONCE .ROUTE ; Start 02/20/20 at 20:36; Stop 02/20/20 at 20:36; Status DC Bivalirudin (Angiomax) 250 mg 1X ONCE IV Last administered on 02/20/20at 20:13; Start 02/20/20 at 20:45; Stop 02/20/20 at 20:46; Status DC Bivalirudin (Angiomax) 250 mg 1X ONCE IV Last administered on 02/20/20at 20:34; Start 02/20/20 at 21:00; Stop 02/20/20 at 21:01; Status DC Sodium Chloride 1,000 ml @ 100 mls/hr Q10H IV Last administered on 02/20/20at 22:13; Start 02/20/20 at 20:59; Stop 02/21/20 at 06:58; Status DC Aspirin (Ecotrin) 81 mg [id number] PO Last administered on 02/21/20at 08:41; Start 02/21/20 at 08:00 Ticagrelor (Brilinta) 90 mg BID PO Last administered on 02/21/20at 08:41; Start 02/21/20 at 09:00 Metoprolol Tartrate (Lopressor) 25 mg BID PO Last administered on 02/20/20at 22:12; Start 02/20/20 at 21:00; Stop 02/21/20 at 01:26; Status DC Losartan Potassium (Cozaar) 25 mg DAILY PO Last administered on 02/20/20at 22:13; Start 02/20/20 at 21:00; Stop 02/21/20 at 01:26; Status DC Atorvastatin Calcium (Lipitor) 80 mg QHS PO Last administered on 02/20/20at 22:12; Start 02/20/20 at 21:00 Acetaminophen (Tylenol) 650 mg PRN Q6HRS PRN PO MILD PAIN / TEMP > 100.3'F; Start 02/20/20 at 21:00 Nitroglycerin (Nitrostat) 0.4 mg PRN Q5MIN PRN SL CHEST PAIN; Start 02/20/20 at 21:00 Ticagrelor (Brilinta) 180 mg 1X ONCE PO Last administered on 02/20/20at 21:15; Start 02/20/20 at 21:15; Stop 02/20/20 at 21:16; Status DC Ticagrelor (Brilinta) 90 mg STK-MED ONCE .ROUTE ; Start 02/20/20 at 21:08; Stop 02/20/20 at 21:08; Status DC Labetalol HCl (Normodyne Iv Push) 10 mg PRN Q6HRS PRN IVP HYPERTENSION Last administered on 02/20/20at 22:33; Start 02/20/20 at 22:30 Losartan Potassium (Cozaar) 50 mg DAILY PO Last administered on 02/21/20at 08:44; Start 02/21/20 at 09:00 Metoprolol Tartrate (Lopressor) 50 mg BID PO Last administered on 02/21/20at 08:43; Start 02/21/20 at 09:00 Metoprolol Tartrate (Lopressor) 50 mg 1X ONCE PO Last administered on 02/21/20at 01:50; Start 02/21/20 at 01:45; Stop 02/21/20 at 01:46; Status DC Losartan Potassium (Cozaar) 50 mg 1X ONCE PO Last administered on 02/21/20at 01:50; Start 02/21/20 at 01:45; Stop 02/21/20 at 01:46; Status DC Active Scripts Active Reported No Known Medications Prior To Admisstion (Info) Each 1 Each MC 1X Allergies Allergies: Coded Allergies: No Known Drug Allergies (Unverified , 02/20/20) ROS Review of System Review of Systems: Constitutional: Denies fever or chills. [] Eyes: Denies change in visual acuity. [] HENT: Denies nasal congestion or sore throat. [] Respiratory: Denies cough or shortness of breath. [] Cardiovascular: Positive for chest pain. GI: Denies abdominal pain, nausea, vomiting, bloody stools or diarrhea. [] : Denies dysuria. [] Musculoskeletal: Denies back pain or joint pain. [] Integument: Denies rash. [] Neurologic: Denies headache, focal weakness or sensory changes. [] Endocrine: Denies polyuria or polydipsia. [] Lymphatic: Denies swollen glands. [] Psychiatric: Denies depression or anxiety. [] 14 pt ros otherwise neg Physical Exam Physical Exam Constitutional: Well developed, well nourished, no acute distress, non-toxic appearance. [] HENT: Normocephalic, atraumatic, bilateral external ears normal, oropharynx moist, no oral exudates, nose normal. [] Eyes: PERRLA, EOMI, conjunctiva normal, no discharge. [] Neck: Normal range of motion, no tenderness, supple, no stridor. [] Cardiovascular:Heart rate regular rhythm, no murmur [] Lungs & Thorax: Bilateral breath sounds clear to auscultation [] Abdomen: Bowel sounds normal, soft, no tenderness, no masses, no pulsatile masses. [] Skin: Warm, dry, no erythema, no rash. [] Back: No tenderness, no CVA tenderness. [] Extremities: No tenderness, no cyanosis, no clubbing, ROM intact, no edema. [] Neurologic: Alert and oriented X 3, normal motor function, normal sensory function, no focal deficits noted. [] Psychologic: Affect normal, judgment normal, mood normal. [] General: Alert, Oriented X3, Cooperative, No acute distress HEENT: EOMI, Mucous membr. moist/pink Breasts: Not examined Abdomen: Soft Rectal Exam: not examined Extremities: No cyanosis Neuro: Normal speech, Cranial nerves 3-12 NL Psych/Mental Status: Mental status NL, Mood NL Vitals Vitals Vital Signs Date Time Temp Pulse Resp B/P (MAP) Pulse Ox O2 Delivery O2 Flow Rate FiO2 02/21/20 09:00 85 18 156/105 (122) 100 Room Air 02/21/20 08:00 98.4 98.4 02/20/20 21:18 2.0 Labs Labs Laboratory Tests Test 02/20/20 19:19 02/20/20 22:22 02/21/20 01:09 White Blood Count 10.7 x10^3/uL (4.0-11.0) 13.6 x10^3/uL (4.0-11.0) Red Blood Count 5.10 x10^6/uL (4.30-5.70) 4.89 x10^6/uL (4.30-5.70) Hemoglobin 14.9 g/dL (13.0-17.5) 14.1 g/dL (13.0-17.5) Hematocrit 43.7 % (39.0-53.0) 42.2 % (39.0-53.0) Mean Corpuscular Volume 86 fL (79-100) 86 fL (79-100) Mean Corpuscular Hemoglobin 29 pg (25-35) 29 pg (25-35) Mean Corpuscular Hemoglobin Concent 34 g/dL (31-37) 33 g/dL (31-37) Red Cell Distribution Width 14.6 % (11.5-14.5) 14.5 % (11.5-14.5) Platelet Count 503 x10^3/uL (140-400) 463 x10^3/uL (140-400) Neutrophils (%) (Auto) 60 % (31-73) 70 % (31-73) Lymphocytes (%) (Auto) 26 % (24-48) 18 % (24-48) Monocytes (%) (Auto) 10 % (0-9) 9 % (0-9) Eosinophils (%) (Auto) 4 % (0-3) 2 % (0-3) Basophils (%) (Auto) 1 % (0-3) 1 % (0-3) Neutrophils # (Auto) 6.4 x10^3/uL (1.8-7.7) 9.5 x10^3/uL (1.8-7.7) Lymphocytes # (Auto) 2.8 x10^3/uL (1.0-4.8) 2.5 x10^3/uL (1.0-4.8) Monocytes # (Auto) 1.0 x10^3/uL (0.0-1.1) 1.2 x10^3/uL (0.0-1.1) Eosinophils # (Auto) 0.4 x10^3/uL (0.0-0.7) 0.2 x10^3/uL (0.0-0.7) Basophils # (Auto) 0.1 x10^3/uL (0.0-0.2) 0.1 x10^3/uL (0.0-0.2) Prothrombin Time 12.9 SEC (11.7-14.0) Prothromb Time International Ratio 1.0 (0.8-1.1) Activated Partial Thromboplast Time 31 SEC (24-38) Sodium Level 140 mmol/L (136-145) 136 mmol/L (136-145) Potassium Level 4.0 mmol/L (3.5-5.1) 3.9 mmol/L (3.5-5.1) Chloride Level 102 mmol/L (98-107) 100 mmol/L (98-107) Carbon Dioxide Level 27 mmol/L (21-32) 24 mmol/L (21-32) Anion Gap 11 (6-14) 12 (6-14) Blood Urea Nitrogen 12 mg/dL (8-26) 11 mg/dL (8-26) Creatinine 1.1 mg/dL (0.7-1.3) 0.8 mg/dL (0.7-1.3) Estimated GFR (Cockcroft-Gault) 74.5 107.6 BUN/Creatinine Ratio 11 (6-20) Glucose Level 181 mg/dL (70-99) 108 mg/dL (70-99) Calcium Level 9.8 mg/dL (8.5-10.1) 9.2 mg/dL (8.5-10.1) Magnesium Level 2.2 mg/dL (1.8-2.4) Total Bilirubin 0.2 mg/dL (0.2-1.0) Aspartate Amino Transf (AST/SGOT) 23 U/L (15-37) Alanine Aminotransferase (ALT/SGPT) 34 U/L (16-63) Alkaline Phosphatase 56 U/L (46-116) Troponin I Quantitative 1.991 ng/mL (0.000-0.055) 16.442 ng/mL (0.000-0.055) 33.819 ng/mL (0.000-0.055) QJ-Bjm-X-Type Natriuretic Peptide 276 pg/mL (0-124) Total Protein 8.0 g/dL (6.4-8.2) Albumin 4.1 g/dL (3.4-5.0) Albumin/Globulin Ratio 1.1 (1.0-1.7) Lipase 133 U/L (73-393) SARS-CoV-2 Antigen (Rapid) Negative (NEGATIVE) Triglycerides Level 302 mg/dL (0-150) Cholesterol Level 154 mg/dL (0-200) LDL Cholesterol, Calculated 57 mg/dL (0-100) VLDL Cholesterol, Calculated 60 mg/dL (0-40) Non-HDL Cholesterol Calculated 117 mg/dL (0-129) HDL Cholesterol 37 mg/dL (40-60) Cholesterol/HDL Ratio 4.2 Laboratory Tests Test 02/20/20 19:19 02/20/20 22:22 02/21/20 01:09 White Blood Count 10.7 x10^3/uL (4.0-11.0) 13.6 x10^3/uL (4.0-11.0) Red Blood Count 5.10 x10^6/uL (4.30-5.70) 4.89 x10^6/uL (4.30-5.70) Hemoglobin 14.9 g/dL (13.0-17.5) 14.1 g/dL (13.0-17.5) Hematocrit 43.7 % (39.0-53.0) 42.2 % (39.0-53.0) Mean Corpuscular Volume 86 fL (79-100) 86 fL (79-100) Mean Corpuscular Hemoglobin 29 pg (25-35) 29 pg (25-35) Mean Corpuscular Hemoglobin Concent 34 g/dL (31-37) 33 g/dL (31-37) Red Cell Distribution Width 14.6 % (11.5-14.5) 14.5 % (11.5-14.5) Platelet Count 503 x10^3/uL (140-400) 463 x10^3/uL (140-400) Neutrophils (%) (Auto) 60 % (31-73) 70 % (31-73) Lymphocytes (%) (Auto) 26 % (24-48) 18 % (24-48) Monocytes (%) (Auto) 10 % (0-9) 9 % (0-9) Eosinophils (%) (Auto) 4 % (0-3) 2 % (0-3) Basophils (%) (Auto) 1 % (0-3) 1 % (0-3) Neutrophils # (Auto) 6.4 x10^3/uL (1.8-7.7) 9.5 x10^3/uL (1.8-7.7) Lymphocytes # (Auto) 2.8 x10^3/uL (1.0-4.8) 2.5 x10^3/uL (1.0-4.8) Monocytes # (Auto) 1.0 x10^3/uL (0.0-1.1) 1.2 x10^3/uL (0.0-1.1) Eosinophils # (Auto) 0.4 x10^3/uL (0.0-0.7) 0.2 x10^3/uL (0.0-0.7) Basophils # (Auto) 0.1 x10^3/uL (0.0-0.2) 0.1 x10^3/uL (0.0-0.2) Prothrombin Time 12.9 SEC (11.7-14.0) Prothromb Time International Ratio 1.0 (0.8-1.1) Activated Partial Thromboplast Time 31 SEC (24-38) Sodium Level 140 mmol/L (136-145) 136 mmol/L (136-145) Potassium Level 4.0 mmol/L (3.5-5.1) 3.9 mmol/L (3.5-5.1) Chloride Level 102 mmol/L (98-107) 100 mmol/L (98-107) Carbon Dioxide Level 27 mmol/L (21-32) 24 mmol/L (21-32) Anion Gap 11 (6-14) 12 (6-14) Blood Urea Nitrogen 12 mg/dL (8-26) 11 mg/dL (8-26) Creatinine 1.1 mg/dL (0.7-1.3) 0.8 mg/dL (0.7-1.3) Estimated GFR (Cockcroft-Gault) 74.5 107.6 BUN/Creatinine Ratio 11 (6-20) Glucose Level 181 mg/dL (70-99) 108 mg/dL (70-99) Calcium Level 9.8 mg/dL (8.5-10.1) 9.2 mg/dL (8.5-10.1) Magnesium Level 2.2 mg/dL (1.8-2.4) Total Bilirubin 0.2 mg/dL (0.2-1.0) Aspartate Amino Transf (AST/SGOT) 23 U/L (15-37) Alanine Aminotransferase (ALT/SGPT) 34 U/L (16-63) Alkaline Phosphatase 56 U/L (46-116) Troponin I Quantitative 1.991 ng/mL (0.000-0.055) 16.442 ng/mL (0.000-0.055) 33.819 ng/mL (0.000-0.055) BY-Ooi-I-Type Natriuretic Peptide 276 pg/mL (0-124) Total Protein 8.0 g/dL (6.4-8.2) Albumin 4.1 g/dL (3.4-5.0) Albumin/Globulin Ratio 1.1 (1.0-1.7) Lipase 133 U/L (73-393) SARS-CoV-2 Antigen (Rapid) Negative (NEGATIVE) Triglycerides Level 302 mg/dL (0-150) Cholesterol Level 154 mg/dL (0-200) LDL Cholesterol, Calculated 57 mg/dL (0-100) VLDL Cholesterol, Calculated 60 mg/dL (0-40) Non-HDL Cholesterol Calculated 117 mg/dL (0-129) HDL Cholesterol 37 mg/dL (40-60) Cholesterol/HDL Ratio 4.2 Images Images PORTABLE CHEST 1V Clinical History: Reason: CHEST PAIN. HEART CATH INSERTION / Spl. Instructions: / History: Technique: AP view of the chest was obtained at 02/20/2020 7:19 PM. Comparison: None. Findings: The cardiomediastinal silhouette is normal. The pulmonary vasculature is normal. The lungs and pleural margins are clear. Impression: No evidence of an acute cardiopulmonary process. Electronically signed by: Sara Holliday III, MD (02/20/2020 11:24 PM) [facility] DICTATED and SIGNED BY: SARA HOLLIDAY III, MD DATE: 02/20/202323 VTE Prophylaxis Ordered VTE Prophylaxis Devices: No VTE Pharmacological Prophylaxi: Yes Assessment/Plan Assessment/Plan Impression: STEMI (ST elevation myocardial infarction) acute Severe two-vessel coronary disease involving the left anterior descending artery (culprit vessel for patient STEMI) and obtuse marginal branch of left circumflex artery Successful PCI/drug-eluting stents placement to the left anterior descending artery and the obtuse marginal branch of left circumflex artery Hypokinesis of the mid to distal anterior wall and apical wall with ejection fraction estimated at 35 to 40% Hypertension; labile Dyslipidemia Elevated glucose morbid obesity ADMITTED cvc icu bed consult cardiology a1c accuchecks 36 MIN CC TIME Justifications for Admission Other Justification SIVA FIELDS MD Feb 21, 2020 09:58
[2020-02-21] MEDS ORDERED: DEXTROSE 50% 25 GM / 50ML DISP.SYRIN. IV PRN (10:15)
[2020-02-21 11:37] LABS: BILIRUBIN,URINE NEGATIVE (NEG); CLARITY,URINE CLOUDY; COLOR,URINE YELLOW; NITRITE,URINE NEGATIVE (NEG); PROTEIN,URINE NEGATIVE (NEG-TRACE); UROBILINOGEN,URINE 0.2 mg/dL (0.2 mg/dL)
[2020-02-21 11:43] LABS: BARBITURATES NEG (NEG); BENZODIAZEPINES NEG (NEG); CANNABINOIDS NEG (NEG); COCAINE NEG (NEG); METHADONE NEG (NEG); OPIATES NEG (NEG); PHENCYCLIDINE NEG (NEG)
[2020-02-21 11:45] LABS: AMPHETAMINE/METHAMPHETAMINE NEG (NEG)
[2020-02-21] MEDS: INSULIN LISPRO 300 UNITS/3 ML VIAL. SQ SCH ×2 (11:55→17:07)
[2020-02-21 12:19] LABS: BACTERIA,URINE 0 /HPF (0-FEW); RBC,URINE 0 /HPF (0-2); WBC,URINE 0 /HPF (0-4)
--- NOTE | 2020-02-21 15:15 | CARD ---
MR#: [id number] Date of Study: 02/21/2020 Ordering Physician: YAO LEON, Referring Physician: YAO LEON, Tech: Kelly Good DORITA APPROVED REPORT EXAM: Two-dimensional and M-mode echocardiogram with Doppler and color Doppler. Other Information Quality : GoodHR: 78bpm Rhythm : NSR INDICATION STEMI, status post PCI x 2. CHF, Cardiomyopathy. Hx: HTN, HLP, Tobacco abuse, obesity. 2D DIMENSIONS RVDd3.1 (2.9-3.5cm)IVSd1.5 (0.7-1.1cm) Aortic Root(2D)4.1 (2.0-3.7cm)LVDd5.7 (3.9-5.9cm) LVOT Diameter2.6 (1.8-2.4cm)PWd1.1 (0.7-1.1cm) LVDs4.4 (2.5-4.0cm)FS (%) 22.0 % SV69.9 mlLVEF(%)43.9 (>50%) Aortic Valve AoV Peak David.105.5cm/Casandra Peak GR.4.4mmHg LVOT Peak David.79.6cm/sAVA (VMAX)4.09cm2 Mitral Valve MV E Vjpcyjfh09.5cm/sMV DECEL NCOF740kd MV A Zajjdihd88.8cm/sE/A Ratio0.7 MV A [id number] Pulmonary Valve PV Peak Dhjvyotc08.3cm/s Tricuspid Valve QPQL2tcCv LEFT VENTRICLE The left ventricle is borderline enlarged. Moderate basal septal hypertrophy is noted. Moderate hypok inesis of mid to distal anterior and anteroseptal durant and severe hypokinesis of apical wall. The Ej ection Fraction is 30-35%. Transmitral Doppler flow pattern is Grade I-abnormal relaxation pattern. RIGHT VENTRICLE The right ventricle is normal size. The right ventricular systolic function is normal. ATRIA The left atrium size is normal. The right atrium size is normal. The interatrial septum is intact wit h no evidence for an atrial septal defect or patent foramen ovale as noted on 2-D or Doppler imaging. AORTIC VALVE The aortic valve is normal in structure and function. No aortic regurgitation. There is no significan t aortic valvular stenosis. MITRAL VALVE The mitral valve is normal in structure and function. There is no mitral valve stenosis. No mitral va lve regurgitation noted. TRICUSPID VALVE The tricuspid valve is normal in structure and function. No tricuspid valve regurgitation noted. Unab le to assess PAP. There is no tricuspid valve stenosis. PULMONIC VALVE The pulmonary valve is normal in structure and function. No pulmonic valvular regurgitation. GREAT VESSELS The aortic root is dilated at the level of the sinuses (4.1cm). The ascending aorta is normal in size . The IVC is normal in size and collapses >50% with inspiration. PERICARDIAL EFFUSION There is no evidence of significant pericardial effusion. Critical Notification Critical Value: No <Conclusion> Moderate hypokinesis of mid to distal anterior and anteroseptal durant and severe hypokinesis of apica l wall. The Ejection Fraction is 30-35%. Transmitral Doppler flow pattern is Grade I-abnormal relaxation pattern. There is no evidence of significant pericardial effusion. Signed by : Yao Leon, Electronically Approved : 02/21/2020 15:14:50
[2020-02-21] MEDS: ATORVASTATIN CALCIUM 40 MG TABLET. PO SCH (20:13)
[2020-02-22 08:00] VITALS: BP 173/93
[2020-02-22] MEDS: INSULIN LISPRO 300 UNITS/3 ML VIAL. SQ SCH (08:00)
[2020-02-22] MEDS: ASPIRIN ENTERIC COATED 81 MG TABLET.DR. PO SCH (08:51)
[2020-02-22] MEDS: TICAGRELOR 90 MG TABLET. PO SCH (08:51)
[2020-02-22 08:52] VITALS: BP 174/93
[2020-02-22] MEDS: METOPROLOL TART IMMED RELEASE 25 MG TABLET. PO SCH (08:52)
[2020-02-22] MEDS ORDERED: LOSARTAN POTASSIUM 50 MG TABLET. PO SCH (09:00)
--- NOTE | 2020-02-22 09:44 | PDOC ---
PROGRESS NOTES Date of Service: DATE: 02/22/20 TIME: 09:43 Chief Complaint Chief Complaint VTE Prophylaxis Ordered VTE Prophylaxis Devices: No VTE Pharmacological Prophylaxi: Yes discharge dx Assessment/Plan Impression: STEMI (ST elevation myocardial infarction) acute Moderate hypokinesis of mid to distal anterior and anteroseptal durant and severe hypokinesis of apical wall. echo Ejection Fraction is 30-35%. Severe two-vessel coronary disease involving the left anterior descending artery (culprit vessel for patient STEMI) and obtuse marginal branch of left circumflex artery Successful PCI/drug-eluting stents placement to the left anterior descending artery and the obtuse marginal branch of left circumflex artery Hypokinesis of the mid to distal anterior wall and apical wall with ejection fraction estimated at 35 to 40% Hypertension; labile Dyslipidemia Elevated glucose morbid obesity tobacco abuse disorder ADMITTED cvc icu bed consult cardiology a1c accuchecks consider life[facility] Cardiac rehab referral Will arrange for [facility]; discussed with patient/ and they are agreeable Plan repeat echo in 3 mos to evaluate need for ICD implantation Supportive care smoking cessation education provided 7 min Cardiology ok with d/c today, off work 33 MIN D/C PLANNING TIME History of Present Illness History of Present Illness Identification/Chief Complaint Chief Complaint SEEN IN ER WITH ACUTE STEMI 39 year old male who was brought here by EMS from work due to substernal chest pain. Symptoms started about 30 minutes ago. Arely carrillo has had this pain off and on for a week. Patient denies any medical problem, he is a smoker. Patient denies cough or fever, no COVID-19 exposure he said. EMS gave patient 324 mg aspirin, and a dose of nitroglycerin on route here. 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 Past Medical History Cardiovascular: No pertinent hx, Hyperlipidemia Past Surgical History Past Surgical History: No pertinent history Family History Family History: Heart Disease, High Cholestrol, Hypertension Social History Smoke: <1 pack per day ALCOHOL: occassional Drugs: None Vitals Vitals Vital Signs Date Time Temp Pulse Resp B/P (MAP) Pulse Ox O2 Delivery O2 Flow Rate FiO2 11/18/20 08:52 87 174/93 02/21/20 23:29 18 Room Air 02/21/20 20:00 98.7 97 98.7 Physical Exam General: Alert, Oriented X3, Cooperative, No acute distress Heart: Regular rate, Normal S1, Normal S2 Lungs: Clear Abdomen: Normal bowel sounds, Soft, No tenderness Extremities: No cyanosis Skin: No rashes Labs LABS Other Information Quality : Good HR: 78bpm Rhythm : NSR INDICATION STEMI, status post PCI x 2. CHF, Cardiomyopathy. Hx: HTN, HLP, Tobacco abuse, obesity. 2D DIMENSIONS RVDd 3.1 (2.9-3.5cm) IVSd 1.5 (0.7-1.1cm) Aortic Root(2D) 4.1 (2.0-3.7cm) LVDd 5.7 (3.9-5.9cm) LVOT Diameter 2.6 (1.8-2.4cm) PWd 1.1 (0.7-1.1cm) LVDs 4.4 (2.5-4.0cm) FS (%) 22.0 % SV 69.9 ml LVEF(%) 43.9 (>50%) Aortic Valve AoV Peak David. 105.5cm/s AO Peak GR. 4.4mmHg LVOT Peak David. 79.6cm/s HAILEE (VMAX) 4.09cm2 Mitral Valve MV E Velocity 39.5cm/s MV DECEL TIME 192ms MV A Velocity 54.8cm/s E/A Ratio 0.7 MV A Duration 128ms Pulmonary Valve PV Peak Velocity 81.3cm/s Tricuspid Valve RVSP 5mmHg LEFT VENTRICLE The left ventricle is borderline enlarged. Moderate basal septal hypertrophy is noted. Moderate hypokinesis of mid to distal anterior and anteroseptal durant and severe hypokinesis of apical wall. The Ejection Fraction is 30-35%. Transmitral Doppler flow pattern is Grade I-abnormal relaxation pattern. RIGHT VENTRICLE The right ventricle is normal size. The right ventricular systolic function is normal. ATRIA The left atrium size is normal. The right atrium size is normal. The interatrial septum is intact with no evidence for an atrial septal defect or patent foramen ovale as noted on 2-D or Doppler imaging. AORTIC VALVE The aortic valve is normal in structure and function. No aortic regurgitation. There is no significant aortic valvular stenosis. MITRAL VALVE The mitral valve is normal in structure and function. There is no mitral valve stenosis. No mitral valve regurgitation noted. TRICUSPID VALVE The tricuspid valve is normal in structure and function. No tricuspid valve regurgitation noted. Unable to assess PAP. There is no tricuspid valve stenosis. PULMONIC VALVE The pulmonary valve is normal in structure and function. No pulmonic valvular regurgitation. GREAT VESSELS The aortic root is dilated at the level of the sinuses (4.1cm). The ascending aorta is normal in size. The IVC is normal in size and collapses >50% with inspiration. PERICARDIAL EFFUSION There is no evidence of significant pericardial effusion. Critical Notification Critical Value: No <Conclusion> Moderate hypokinesis of mid to distal anterior and anteroseptal durant and severe hypokinesis of apical wall. The Ejection Fraction is 30-35%. Transmitral Doppler flow pattern is Grade I-abnormal relaxation pattern. There is no evidence of significant pericardial effusion. Signed by : Yao Galdamez, Electronically Approved : 02/21/2020 15:14:50 DICTATED and SIGNED BY: YAO GALDAMEZ MD DATE: 02/21/20 1445 Laboratory Tests Test 02/21/20 11:26 02/21/20 11:50 02/21/20 15:27 Urine Collection Type Unknown Urine Color Yellow Urine Clarity Cloudy Urine pH 8.0 (<5.0-8.0) Urine Specific [place] 1.015 (1.000-1.030) Urine Protein Negative mg/dL (NEG-TRACE) Urine Glucose (UA) Negative mg/dL (NEG) Urine Ketones (Stick) Negative mg/dL (NEG) Urine Blood Negative (NEG) Urine Nitrite Negative (NEG) Urine Bilirubin Negative (NEG) Urine Urobilinogen Dipstick 0.2 mg/dL (0.2 mg/dL) Urine Leukocyte Esterase Negative (NEG) Urine RBC 0 /HPF (0-2) Urine WBC 0 /HPF (0-4) Urine Squamous Epithelial Cells Occ /LPF Urine Bacteria 0 /HPF (0-FEW) Urine Mucus Slight /LPF Urine Opiates Screen Neg (NEG) Urine Methadone Screen Neg (NEG) Urine Barbiturates Neg (NEG) Urine Phencyclidine Screen Neg (NEG) Urine Amphetamine/Methamphetamine Neg (NEG) Urine Benzodiazepines Screen Neg (NEG) Urine Cocaine Screen Neg (NEG) Urine Cannabinoids Screen Neg (NEG) Urine Ethyl Alcohol Neg (NEG) Glucose (Fingerstick) 107 mg/dL (70-99) 92 mg/dL (70-99) Assessment and Plan Assessmemt and Plan Problems Medical Problems: (1) STEMI (ST elevation myocardial infarction) Status: Acute Comment Review of Relevant I have reviewed the following items coco (where applicable) has been applied. Labs Laboratory Tests Test 02/20/20 19:19 02/20/20 22:22 02/21/20 01:09 02/21/20 11:26 White Blood Count 10.7 x10^3/uL (4.0-11.0) 13.6 x10^3/uL (4.0-11.0) Red Blood Count 5.10 x10^6/uL (4.30-5.70) 4.89 x10^6/uL (4.30-5.70) Hemoglobin 14.9 g/dL (13.0-17.5) 14.1 g/dL (13.0-17.5) Hematocrit 43.7 % (39.0-53.0) 42.2 % (39.0-53.0) Mean Corpuscular Volume 86 fL (79-100) 86 fL (79-100) Mean Corpuscular Hemoglobin 29 pg (25-35) 29 pg (25-35) Mean Corpuscular Hemoglobin Concent 34 g/dL (31-37) 33 g/dL (31-37) Red Cell Distribution Width 14.6 % (11.5-14.5) 14.5 % (11.5-14.5) Platelet Count 503 x10^3/uL (140-400) 463 x10^3/uL (140-400) Neutrophils (%) (Auto) 60 % (31-73) 70 % (31-73) Lymphocytes (%) (Auto) 26 % (24-48) 18 % (24-48) Monocytes (%) (Auto) 10 % (0-9) 9 % (0-9) Eosinophils (%) (Auto) 4 % (0-3) 2 % (0-3) Basophils (%) (Auto) 1 % (0-3) 1 % (0-3) Neutrophils # (Auto) 6.4 x10^3/uL (1.8-7.7) 9.5 x10^3/uL (1.8-7.7) Lymphocytes # (Auto) 2.8 x10^3/uL (1.0-4.8) 2.5 x10^3/uL (1.0-4.8) Monocytes # (Auto) 1.0 x10^3/uL (0.0-1.1) 1.2 x10^3/uL (0.0-1.1) Eosinophils # (Auto) 0.4 x10^3/uL (0.0-0.7) 0.2 x10^3/uL (0.0-0.7) Basophils # (Auto) 0.1 x10^3/uL (0.0-0.2) 0.1 x10^3/uL (0.0-0.2) Prothrombin Time 12.9 SEC (11.7-14.0) Prothromb Time International Ratio 1.0 (0.8-1.1) Activated Partial Thromboplast Time 31 SEC (24-38) Sodium Level 140 mmol/L (136-145) 136 mmol/L (136-145) Potassium Level 4.0 mmol/L (3.5-5.1) 3.9 mmol/L (3.5-5.1) Chloride Level 102 mmol/L (98-107) 100 mmol/L (98-107) Carbon Dioxide Level 27 mmol/L (21-32) 24 mmol/L (21-32) Anion Gap 11 (6-14) 12 (6-14) Blood Urea Nitrogen 12 mg/dL (8-26) 11 mg/dL (8-26) Creatinine 1.1 mg/dL (0.7-1.3) 0.8 mg/dL (0.7-1.3) Estimated GFR (Cockcroft-Gault) 74.5 107.6 BUN/Creatinine Ratio 11 (6-20) Glucose Level 181 mg/dL (70-99) 108 mg/dL (70-99) Calcium Level 9.8 mg/dL (8.5-10.1) 9.2 mg/dL (8.5-10.1) Magnesium Level 2.2 mg/dL (1.8-2.4) Total Bilirubin 0.2 mg/dL (0.2-1.0) Aspartate Amino Transf (AST/SGOT) 23 U/L (15-37) Alanine Aminotransferase (ALT/SGPT) 34 U/L (16-63) Alkaline Phosphatase 56 U/L (46-116) Troponin I Quantitative 1.991 ng/mL (0.000-0.055) 16.442 ng/mL (0.000-0.055) 33.819 ng/mL (0.000-0.055) KE-Bdf-J-Type Natriuretic Peptide 276 pg/mL (0-124) Total Protein 8.0 g/dL (6.4-8.2) Albumin 4.1 g/dL (3.4-5.0) Albumin/Globulin Ratio 1.1 (1.0-1.7) Lipase 133 U/L (73-393) SARS-CoV-2 Antigen (Rapid) Negative (NEGATIVE) Hemoglobin A1c 6.0 % (4.8-5.6) Triglycerides Level 302 mg/dL (0-150) Cholesterol Level 154 mg/dL (0-200) LDL Cholesterol, Calculated 57 mg/dL (0-100) VLDL Cholesterol, Calculated 60 mg/dL (0-40) Non-HDL Cholesterol Calculated 117 mg/dL (0-129) HDL Cholesterol 37 mg/dL (40-60) Cholesterol/HDL Ratio 4.2 Urine Collection Type Unknown Urine Color Yellow Urine Clarity Cloudy Urine pH 8.0 (<5.0-8.0) Urine Specific [place] 1.015 (1.000-1.030) Urine Protein Negative mg/dL (NEG-TRACE) Urine Glucose (UA) Negative mg/dL (NEG) Urine Ketones (Stick) Negative mg/dL (NEG) Urine Blood Negative (NEG) Urine Nitrite Negative (NEG) Urine Bilirubin Negative (NEG) Urine Urobilinogen Dipstick 0.2 mg/dL (0.2 mg/dL) Urine Leukocyte Esterase Negative (NEG) Urine RBC 0 /HPF (0-2) Urine WBC 0 /HPF (0-4) Urine Squamous Epithelial Cells Occ /LPF Urine Bacteria 0 /HPF (0-FEW) Urine Mucus Slight /LPF Urine Opiates Screen Neg (NEG) Urine Methadone Screen Neg (NEG) Urine Barbiturates Neg (NEG) Urine Phencyclidine Screen Neg (NEG) Urine Amphetamine/Methamphetamine Neg (NEG) Urine Benzodiazepines Screen Neg (NEG) Urine Cocaine Screen Neg (NEG) Urine Cannabinoids Screen Neg (NEG) Urine Ethyl Alcohol Neg (NEG) Test 02/21/20 11:50 02/21/20 15:27 Glucose (Fingerstick) 107 mg/dL (70-99) 92 mg/dL (70-99) Laboratory Tests Test 02/21/20 11:26 02/21/20 11:50 02/21/20 15:27 Urine Collection Type Unknown Urine Color Yellow Urine Clarity Cloudy Urine pH 8.0 (<5.0-8.0) Urine Specific [place] 1.015 (1.000-1.030) Urine Protein Negative mg/dL (NEG-TRACE) Urine Glucose (UA) Negative mg/dL (NEG) Urine Ketones (Stick) Negative mg/dL (NEG) Urine Blood Negative (NEG) Urine Nitrite Negative (NEG) Urine Bilirubin Negative (NEG) Urine Urobilinogen Dipstick 0.2 mg/dL (0.2 mg/dL) Urine Leukocyte Esterase Negative (NEG) Urine RBC 0 /HPF (0-2) Urine WBC 0 /HPF (0-4) Urine Squamous Epithelial Cells Occ /LPF Urine Bacteria 0 /HPF (0-FEW) Urine Mucus Slight /LPF Urine Opiates Screen Neg (NEG) Urine Methadone Screen Neg (NEG) Urine Barbiturates Neg (NEG) Urine Phencyclidine Screen Neg (NEG) Urine Amphetamine/Methamphetamine Neg (NEG) Urine Benzodiazepines Screen Neg (NEG) Urine Cocaine Screen Neg (NEG) Urine Cannabinoids Screen Neg (NEG) Urine Ethyl Alcohol Neg (NEG) Glucose (Fingerstick) 107 mg/dL (70-99) 92 mg/dL (70-99) Medications Current Medications Heparin Sodium/ Dextrose 250 ml @ 0 mls/hr CONT PRN IV PER PROTOCOL Last administered on 02/20/20at 19:39; Start 02/20/20 at 19:30; Stop 02/21/20 at 09:30; Status DC Heparin Sodium (Porcine) (Heparin Sodium) 10,000 unit [employer]-Purer Skin ONCE .ROUTE ; Start 02/20/20 at 19:28; Stop 02/20/20 at 19:28; Status DC Nitroglycerin/ Dextrose 250 ml @ 0 mls/hr 1X ONCE IV Last administered on 02/20/20at 19:41; Start 02/20/20 at 19:30; Stop 02/20/20 at 19:32; Status DC Heparin Sodium (Porcine) (Heparin Sodium) 4,000 unit 1X ONCE IV Last administered on 02/20/20at 19:42; Start 02/20/20 at 19:45; Stop 02/20/20 at 19:46; Status DC Iodixanol (Visipaque 320) 100 ml STK-MED ONCE .ROUTE ; Start 02/20/20 at 19:48; Stop 02/20/20 at 19:48; Status DC Lidocaine HCl (Lidocaine 1% 20ml Vial) 20 ml STK-MED ONCE .ROUTE ; Start 02/20/20 at 19:48; Stop 02/20/20 at 19:48; Status DC Heparin Sodium/ Sodium Chloride 1,000 ml @ As Directed STK-MED ONCE .ROUTE ; Start 02/20/20 at 19:48; Stop 02/20/20 at 19:48; Status DC Fentanyl Citrate (Fentanyl 2ml Vial) 100 mcg STK-MED ONCE .ROUTE ; Start 02/20/20 at 19:54; Stop 02/20/20 at 19:55; Status DC Midazolam HCl (Versed) 2 mg STK-MED ONCE .ROUTE ; Start 02/20/20 at 19:54; Stop 02/20/20 at 19:55; Status DC Heparin Sodium (Porcine) (Heparin Sodium) 10,000 unit STK-MED ONCE .ROUTE ; Start 02/20/20 at 19:55; Stop 02/20/20 at 19:55; Status DC Verapamil HCl (Verapamil) 5 mg STK-MED ONCE .ROUTE ; Start 02/20/20 at 19:55; Stop 02/20/20 at 19:55; Status DC Nitroglycerin (Nitroglycerin) 200 mcg STK-MED ONCE .ROUTE ; Start 02/20/20 at 19:55; Stop 02/20/20 at 19:55; Status DC Nitroglycerin (Nitroglycerin) 200 mcg 1X ONCE IART Last administered on 02/20/20at 20:00; Start 02/20/20 at 20:00; Stop 02/20/20 at 20:18; Status DC Verapamil HCl (Verapamil) 2.5 mg 1X ONCE IART Last administered on 02/20/20at 20:00; Start 02/20/20 at 20:00; Stop 02/20/20 at 20:18; Status DC Heparin Sodium (Porcine) (Heparin Sodium) 2,500 unit 1X ONCE IART Last administered on 02/20/20at 20:00; Start 02/20/20 at 20:00; Stop 02/20/20 at 20:18; Status DC Heparin Sodium/ Sodium Chloride (HEPARIN for ARTERIAL LINE FLUSH) 1,000 unit 1X ONCE IART Last administered on 02/20/20at 20:00; Start 02/20/20 at 20:00; Stop 02/20/20 at 20:18; Status DC Heparin Sodium/ Sodium Chloride (HEPARIN for ARTERIAL LINE FLUSH) 1,000 unit 1X ONCE IART Last administered on 02/20/20at 20:00; Start 02/20/20 at 20:00; Stop 02/20/20 at 20:18; Status DC Midazolam HCl (Versed) 2 mg 1X ONCE IV Last administered on 02/20/20at 19:58; Start 02/20/20 at 20:00; Stop 02/20/20 at 20:18; Status DC Fentanyl Citrate (Fentanyl 2ml Vial) 100 mcg 1X ONCE IV Last administered on 02/20/20at 19:58; Start 02/20/20 at 20:00; Stop 02/20/20 at 20:18; Status DC Iodixanol (Visipaque 320) 100 ml 1X ONCE IART Last administered on 02/20/20at 20:55; Start 02/20/20 at 20:00; Stop 02/20/20 at 20:18; Status DC Lidocaine HCl (Lidocaine 1% 20ml Vial) 20 ml 1X ONCE INJ Last administered on 02/20/20at 20:00; Start 02/20/20 at 20:00; Stop 02/20/20 at 20:18; Status DC Bivalirudin (Angiomax) 250 mg STK-MED ONCE IV ; Start 02/20/20 at 20:09; Stop 02/20/20 at 20:09; Status DC Info (CONTRAST GIVEN -- Rx MONITORING) 1 each PRN DAILY PRN MC SEE COMMENTS; Start 02/20/20 at 20:30; Stop 02/22/20 at 20:29 Fentanyl Citrate (Fentanyl 2ml Vial) 100 mcg STK-MED ONCE .ROUTE ; Start 02/20/20 at 20:26; Stop 02/20/20 at 20:26; Status DC Bivalirudin (Angiomax) 250 mg STK-MED ONCE IV ; Start 02/20/20 at 20:30; Stop 02/20/20 at 20:30; Status DC Iodixanol (Visipaque 320) 100 ml STK-MED ONCE .ROUTE ; Start 02/20/20 at 20:36; Stop 02/20/20 at 20:36; Status DC Bivalirudin (Angiomax) 250 mg 1X ONCE IV Last administered on 02/20/20at 20:13; Start 02/20/20 at 20:45; Stop 02/20/20 at 20:46; Status DC Bivalirudin (Angiomax) 250 mg 1X ONCE IV Last administered on 02/20/20at 20:34; Start 02/20/20 at 21:00; Stop 02/20/20 at 21:01; Status DC Sodium Chloride 1,000 ml @ 100 mls/hr Q10H IV Last administered on 02/20/20at 22:13; Start 02/20/20 at 20:59; Stop 02/21/20 at 06:58; Status DC Aspirin (Ecotrin) 81 mg DAILYWBKFT PO Last administered on 02/22/20at 08:51; Start 02/21/20 at 08:00 Ticagrelor (Brilinta) 90 mg BID PO Last administered on 02/22/20at 08:51; Start 02/21/20 at 09:00 Metoprolol Tartrate (Lopressor) 25 mg BID PO Last administered on 02/20/20at 22:12; Start 02/20/20 at 21:00; Stop 02/21/20 at 01:26; Status DC Losartan Potassium (Cozaar) 25 mg DAILY PO Last administered on 02/20/20at 22:13; Start 02/20/20 at 21:00; Stop 02/21/20 at 01:26; Status DC Atorvastatin Calcium (Lipitor) 80 mg QHS PO Last administered on 02/21/20at 20:13; Start 02/20/20 at 21:00 Acetaminophen (Tylenol) 650 mg PRN Q6HRS PRN PO MILD PAIN / TEMP > 100.3'F; Start 02/20/20 at 21:00 Nitroglycerin (Nitrostat) 0.4 mg PRN Q5MIN PRN SL CHEST PAIN; Start 02/20/20 at 21:00 Ticagrelor (Brilinta) 180 mg 1X ONCE PO Last administered on 02/20/20at 21:15; Start 02/20/20 at 21:15; Stop 02/20/20 at 21:16; Status DC Ticagrelor (Brilinta) 90 mg STK-MED ONCE .ROUTE ; Start 02/20/20 at 21:08; Stop 02/20/20 at 21:08; Status DC Labetalol HCl (Normodyne Iv Push) 10 mg PRN Q6HRS PRN IVP HYPERTENSION Last administered on 02/20/20at 22:33; Start 02/20/20 at 22:30 Losartan Potassium (Cozaar) 50 mg DAILY PO Last administered on 02/21/20at 08:44; Start 02/21/20 at 09:00; Stop 02/21/20 at 11:54; Status DC Metoprolol Tartrate (Lopressor) 50 mg BID PO Last administered on 02/22/20at 08:52; Start 02/21/20 at 09:00; Stop 02/22/20 at 09:20; Status DC Metoprolol Tartrate (Lopressor) 50 mg 1X ONCE PO Last administered on 02/21/20at 01:50; Start 02/21/20 at 01:45; Stop 02/21/20 at 01:46; Status DC Losartan Potassium (Cozaar) 50 mg 1X ONCE PO Last administered on 02/21/20at 01:50; Start 02/21/20 at 01:45; Stop 02/21/20 at 01:46; Status DC Insulin Human Lispro (HumaLOG) 0-5 UNITS TIDWMEALS SQ ; Start 02/21/20 at 12:00 Dextrose (Dextrose 50%-Water Syringe) 12.5 gm PRN Q15MIN PRN IV SEE COMMENTS; Start 02/21/20 at 10:15 Losartan Potassium (Cozaar) 100 mg DAILY PO Last administered on 02/22/20at 08:52; Start 02/22/20 at 09:00 Losartan Potassium (Cozaar) 50 mg 1X ONCE PO Last administered on 02/21/20at 12:12; Start 02/21/20 at 12:00; Stop 02/21/20 at 12:02; Status DC Metoprolol Succinate (Toprol Xl) 100 mg DAILY PO ; Start 02/23/20 at 09:00 Active Scripts Active Reported No Known Medications Prior To Admisstion (Info) Each 1 Each MC 1X Vitals/I & O Vital Sign - Last 24 Hours 02/21/20 02/21/20 02/21/20 02/21/20 10:00 11:00 11:38 12:00 Pulse 80 78 76 Resp 18 18 18 B/P (MAP) 146/94 (111) 161/113 (129) 142/99 (113) Pulse Ox 100 100 100 O2 Delivery Room Air Room Air Room Air Room Air 02/21/20 02/21/20 02/21/20 02/21/20 12:12 16:00 19:30 20:00 Temp 98.7 98.7 Pulse 87 79 86 Resp 20 19 B/P (MAP) 161/113 151/99 (116) 125/80 (95) Pulse Ox 100 97 O2 Delivery Room Air Room Air Room Air 02/21/20 02/21/20 02/22/20 02/22/20 20:13 23:29 03:45 08:52 Pulse 86 81 74 90 Resp 18 B/P (MAP) 125/80 174/93 O2 Delivery Room Air 02/22/20 08:52 Pulse 87 B/P (MAP) 174/93 Intake and Output 02/21/20 02/21/20 02/22/20 15:00 23:00 07:00 Intake Total 720 ml 460 ml 200 ml Output Total 400 ml 400 ml Balance 320 ml 60 ml 200 ml Justicifation of Admission Dx: Justifications for Admission: Justification of Admission Dx: Yes CA: Acute STEMI SIVA FIELDS MD Feb 22, 2020 09:44
--- NOTE | 2020-02-22 10:10 | PDOC ---
SEUN PACHECO HYDROELECTRIC PRODUCTION MANAGER 02/22/20 1010: CARDIO Progress Notes Date and Time Date of Service 02/22/20 Time of Evaluation 1000 Subjective Subjective: No Chest Pain, No shortness of breath, No Palpitations Vitals Vitals Vital Signs Date Time Temp Pulse Resp B/P (MAP) Pulse Ox O2 Delivery O2 Flow Rate FiO2 02/22/20 08:52 87 174/93 02/21/20 23:29 18 Room Air 02/21/20 20:00 98.7 97 98.7 Weight Weight [ ] Input and Output Intake and Output Intake and Output 02/22/20 07:00 Intake Total 1380 ml Output Total 800 ml Balance 580 ml Intake Oral 1380 ml Output Urine Total 800 ml # Voids 3 Laboratory Labs Laboratory Tests Test 02/21/20 11:26 02/21/20 11:50 02/21/20 15:27 Urine Collection Type Unknown Urine Color Yellow Urine Clarity Cloudy Urine pH 8.0 (<5.0-8.0) Urine Specific [place] 1.015 (1.000-1.030) Urine Protein Negative mg/dL (NEG-TRACE) Urine Glucose (UA) Negative mg/dL (NEG) Urine Ketones (Stick) Negative mg/dL (NEG) Urine Blood Negative (NEG) Urine Nitrite Negative (NEG) Urine Bilirubin Negative (NEG) Urine Urobilinogen Dipstick 0.2 mg/dL (0.2 mg/dL) Urine Leukocyte Esterase Negative (NEG) Urine RBC 0 /HPF (0-2) Urine WBC 0 /HPF (0-4) Urine Squamous Epithelial Cells Occ /LPF Urine Bacteria 0 /HPF (0-FEW) Urine Mucus Slight /LPF Urine Opiates Screen Neg (NEG) Urine Methadone Screen Neg (NEG) Urine Barbiturates Neg (NEG) Urine Phencyclidine Screen Neg (NEG) Urine Amphetamine/Methamphetamine Neg (NEG) Urine Benzodiazepines Screen Neg (NEG) Urine Cocaine Screen Neg (NEG) Urine Cannabinoids Screen Neg (NEG) Urine Ethyl Alcohol Neg (NEG) Glucose (Fingerstick) 107 mg/dL (70-99) 92 mg/dL (70-99) Physical Exam HEENT: Neck Supple W Full Motion Chest: Symmetric LUNGS: Clear to Auscultation Heart: RRR Abdomen: Soft N/T Extremities: No Edema, Other (right radial arteriotomy site soft, clean, and dry. No ecchymosis. Neurovscular status intact. ) Neurology: alert, oriented, follow commands Assessment Assessment 1. STEMI 2. CAD; two-vessel disease. S/p successful PCI/GISELLA to the LAD and OM brand of LCx .Tolerated well. No acute events 3. Acute on chronic combined diastolic/systolic CHF; cath with elevated LVEDP 4. Ischemic cardiomyopathy; cath showed hypokinesis of the mid to distal anterior and apical wall. Echo with LVEF 30-35% 5. Hypertension; better controlled 6. Dyslipidemia 7. Elevated glucose; as per IM 8. Tobaccoism; reinforced cessation Recommendations Secondary prevention including DAPT with ASA/Brilinta and high dose statin therapy Continue metoprolol, losartan; convert metoprolol to long acting. Add low dose diuretic therapy Home BP monitoring Risk stratification modification Cardiac rehab referral Will arrange for [facility]; discussed with patient/ and they are agreeable Plan repeat echo in 3 mos to evaluate need for ICD implantation Supportive care Justicifation of Admission Dx: Justifications for Admission: Justification of Admission Dx: Yes MA: Acute STEMI YAO LEON MD 02/22/20 2140: CARDIO Progress Notes Assessment Assessment Patient seen and examined. Agree with CARTOGRAPHY SUPERVISOR's assessment and plan. s/p PCI/GISELLA to LAD and LCX, currently CP free Ac systolic and diastolic HF better compensated BP better controlled 2D echo showed EF 30-35%. Plan [facility] upon DC and repeat echo in 3 mos to evaluate need for ICD implantation SEUN PACHECO APRN Feb 22, 2020 10:10 YAO LEON MD Feb 22, 2020 21:40
[2020-02-22] MEDS ORDERED: POTASSIUM CHLORIDE 10 MEQ TABLET.ER. PO ONE (11:00)
[2020-02-22] MEDS ORDERED: FUROSEMIDE 20 MG TABLET PO SCH (11:00)
--- NOTE | 2020-02-22 11:00 | NUR ---
Cardiology stated patient could take Lasix and potassium once home. Dose held in hospital. Pt and verbalized understanding to take dose upon returning home.
--- NOTE | 2020-02-22 11:13 | PDOC3 ---
Discharge Summary Date of Admission: Feb 21, 2020 Date of Discharge: Feb 22, 2020 Follow-Up: Other (1-2 weeks) Admitting Diagnosis comment: discharge dx Assessment/Plan Impression: STEMI (ST elevation myocardial infarction) acute Moderate hypokinesis of mid to distal anterior and anteroseptal durant and severe hypokinesis of apical wall. echo Ejection Fraction is 30-35%. Severe two-vessel coronary disease involving the left anterior descending artery (culprit vessel for patient STEMI) and obtuse marginal branch of left circumflex artery Successful PCI/drug-eluting stents placement to the left anterior descending artery and the obtuse marginal branch of left circumflex artery Hypokinesis of the mid to distal anterior wall and apical wall with ejection fraction estimated at 35 to 40% Hypertension; labile Dyslipidemia Elevated glucose morbid obesity tobacco abuse disorder ADMITTED cvc icu bed consult cardiology a1c accuchecks consider [facility] Cardiac rehab referral Will arrange for [facility]; discussed with patient/ and they are agreeable Plan repeat echo in 3 mos to evaluate need for ICD implantation Supportive care smoking cessation education provided 7 min Cardiology ok with d/c today, off work add lasix 20 mg po daily, k 10 meq po daily 33 MIN D/C PLANNING TIME History of Present Illness History of Present Illness Identification/Chief Complaint Chief Complaint SEEN IN ER WITH ACUTE STEMI 39 year old male who was brought here by EMS from work due to substernal chest pain. Symptoms started about 30 minutes ago. Patient has had this pain off and on for a week. Patient denies any medical problem, he is a smoker. Patient denies cough or fever, no COVID-19 exposure he said. EMS gave patient 324 mg aspirin, and a dose of nitroglycerin on route here. 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 Past Medical History Cardiovascular: No pertinent hx, Hyperlipidemia Past Surgical History Past Surgical History: No pertinent history Family History Family History: Heart Disease, High Cholestrol, Hypertension Social History Smoke: <1 pack per day ALCOHOL: occassional Drugs: None Vitals Vitals Vital Signs Date Time Temp Pulse Resp B/P (MAP) Pulse Ox O2 Delivery O2 Flow Rate FiO2 02/22/20 08:52 87 174/93 02/21/20 23:29 18 Room Air 02/21/20 20:00 98.7 97 98.7 Physical Exam General: Alert, Oriented X3, Cooperative, No acute distress Heart: Regular rate, Normal S1, Normal S2 Lungs: Clear Abdomen: Normal bowel sounds, Soft, No tenderness Extremities: No cyanosis Skin: No rashes Labs LABS Other Information Quality : Good HR: 78bpm Rhythm : NSR INDICATION STEMI, status post PCI x 2. CHF, Cardiomyopathy. Hx: HTN, HLP, Tobacco abuse, obesity. 2D DIMENSIONS RVDd 3.1 (2.9-3.5cm) IVSd 1.5 (0.7-1.1cm) Aortic Root(2D) 4.1 (2.0-3.7cm) LVDd 5.7 (3.9-5.9cm) LVOT Diameter 2.6 (1.8-2.4cm) PWd 1.1 (0.7-1.1cm) LVDs 4.4 (2.5-4.0cm) FS (%) 22.0 % SV 69.9 ml LVEF(%) 43.9 (>50%) Aortic Valve AoV Peak David. 105.5cm/s AO Peak GR. 4.4mmHg LVOT Peak David. 79.6cm/s HAILEE (VMAX) 4.09cm2 Mitral Valve MV E Velocity 39.5cm/s MV DECEL TIME 192ms MV A Velocity 54.8cm/s E/A Ratio 0.7 MV A Duration 128ms Pulmonary Valve PV Peak Velocity 81.3cm/s Tricuspid Valve RVSP 5mmHg LEFT VENTRICLE The left ventricle is borderline enlarged. Moderate basal septal hypertrophy is noted. Moderate hypokinesis of mid to distal anterior and anteroseptal durant and severe hypokinesis of apical wall. The Ejection Fraction is 30-35%. Transmitral Doppler flow pattern is Grade I-abnormal relaxation pattern. RIGHT VENTRICLE The right ventricle is normal size. The right ventricular systolic function is normal. ATRIA The left atrium size is normal. The right atrium size is normal. The interatrial septum is intact with no evidence for an atrial septal defect or patent foramen ovale as noted on 2-D or Doppler imaging. AORTIC VALVE The aortic valve is normal in structure and function. No aortic regurgitation. There is no significant aortic valvular stenosis. MITRAL VALVE The mitral valve is normal in structure and function. There is no mitral valve stenosis. No mitral valve regurgitation noted. TRICUSPID VALVE The tricuspid valve is normal in structure and function. No tricuspid valve regurgitation noted. Unable to assess PAP. There is no tricuspid valve stenosis. PULMONIC VALVE The pulmonary valve is normal in structure and function. No pulmonic valvular regurgitation. GREAT VESSELS The aortic root is dilated at the level of the sinuses (4.1cm). The ascending aorta is normal in size. The IVC is normal in size and collapses >50% with inspiration. PERICARDIAL EFFUSION There is no evidence of significant pericardial effusion. Critical Notification Critical Value: No <Conclusion> Moderate hypokinesis of mid to distal anterior and anteroseptal durant and severe hypokinesis of apical wall. The Ejection Fraction is 30-35%. Transmitral Doppler flow pattern is Grade I-abnormal relaxation pattern. There is no evidence of significant pericardial effusion. Signed by : Yao Galdamez, Electronically Approved : 02/21/2020 15:14:50 DICTATED and SIGNED BY: YAO GALDAMEZ MD FINAL DIAGNOSIS Problems Medical Problems: (1) STEMI (ST elevation myocardial infarction) Status: Acute Brief Hospital Course Mr. Suggs is a 39 old [sex] who presented with [ acute STEMI ] CONDITION AT DISCHARGE: Improved Discharge Medications Current Medications Heparin Sodium/ Dextrose 250 ml @ 0 mls/hr CONT PRN IV PER PROTOCOL Last administered on 02/20/20at 19:39; Start 02/20/20 at 19:30; Stop 02/21/20 at 09:30; Status DC Heparin Sodium (Porcine) (Heparin Sodium) 10,000 unit STK-MED ONCE .ROUTE ; Start 02/20/20 at 19:28; Stop 02/20/20 at 19:28; Status DC Nitroglycerin/ Dextrose 250 ml @ 0 mls/hr 1X ONCE IV Last administered on 02/20/20at 19:41; Start 02/20/20 at 19:30; Stop 02/20/20 at 19:32; Status DC Heparin Sodium (Porcine) (Heparin Sodium) 4,000 unit 1X ONCE IV Last administered on 02/20/20at 19:42; Start 02/20/20 at 19:45; Stop 02/20/20 at 19:46; Status DC Iodixanol (Visipaque 320) 100 ml STK-MED ONCE .ROUTE ; Start 02/20/20 at 19:48; Stop 02/20/20 at 19:48; Status DC Lidocaine HCl (Lidocaine 1% 20ml Vial) 20 ml STK-MED ONCE .ROUTE ; Start 02/20/20 at 19:48; Stop 02/20/20 at 19:48; Status DC Heparin Sodium/ Sodium Chloride 1,000 ml @ As Directed STK-MED ONCE .ROUTE ; Start 02/20/20 at 19:48; Stop 02/20/20 at 19:48; Status DC Fentanyl Citrate (Fentanyl 2ml Vial) 100 mcg STK-MED ONCE .ROUTE ; Start 02/20/20 at 19:54; Stop 02/20/20 at 19:55; Status DC Midazolam HCl (Versed) 2 mg STK-MED ONCE .ROUTE ; Start 02/20/20 at 19:54; Stop 02/20/20 at 19:55; Status DC Heparin Sodium (Porcine) (Heparin Sodium) 10,000 unit STK-MED ONCE .ROUTE ; Start 02/20/20 at 19:55; Stop 02/20/20 at 19:55; Status DC Verapamil HCl (Verapamil) 5 mg STK-MED ONCE .ROUTE ; Start 02/20/20 at 19:55; Stop 02/20/20 at 19:55; Status DC Nitroglycerin (Nitroglycerin) 200 mcg STK-MED ONCE .ROUTE ; Start 02/20/20 at 19:55; Stop 02/20/20 at 19:55; Status DC Nitroglycerin (Nitroglycerin) 200 mcg 1X ONCE IART Last administered on 02/20/20at 20:00; Start 02/20/20 at 20:00; Stop 02/20/20 at 20:18; Status DC Verapamil HCl (Verapamil) 2.5 mg 1X ONCE IART Last administered on 02/20/20at 20:00; Start 02/20/20 at 20:00; Stop 02/20/20 at 20:18; Status DC Heparin Sodium (Porcine) (Heparin Sodium) 2,500 unit 1X ONCE IART Last administered on 02/20/20at 20:00; Start 02/20/20 at 20:00; Stop 02/20/20 at 20:18; Status DC Heparin Sodium/ Sodium Chloride (HEPARIN for ARTERIAL LINE FLUSH) 1,000 unit 1X ONCE IART Last administered on 02/20/20at 20:00; Start 02/20/20 at 20:00; Stop 02/20/20 at 20:18; Status DC Heparin Sodium/ Sodium Chloride (HEPARIN for ARTERIAL LINE FLUSH) 1,000 unit 1X ONCE IART Last administered on 02/20/20at 20:00; Start 02/20/20 at 20:00; Stop 02/20/20 at 20:18; Status DC Midazolam HCl (Versed) 2 mg 1X ONCE IV Last administered on 02/20/20at 19:58; Start 02/20/20 at 20:00; Stop 02/20/20 at 20:18; Status DC Fentanyl Citrate (Fentanyl 2ml Vial) 100 mcg 1X ONCE IV Last administered on 02/20/20at 19:58; Start 02/20/20 at 20:00; Stop 02/20/20 at 20:18; Status DC Iodixanol (Visipaque 320) 100 ml 1X ONCE IART Last administered on 02/20/20at 20:55; Start 02/20/20 at 20:00; Stop 02/20/20 at 20:18; Status DC Lidocaine HCl (Lidocaine 1% 20ml Vial) 20 ml 1X ONCE INJ Last administered on 02/20/20at 20:00; Start 02/20/20 at 20:00; Stop 02/20/20 at 20:18; Status DC Bivalirudin (Angiomax) 250 mg STK-MED ONCE IV ; Start 02/20/20 at 20:09; Stop 02/20/20 at 20:09; Status DC Info (CONTRAST GIVEN -- Rx MONITORING) 1 each PRN DAILY PRN MC SEE COMMENTS; Start 02/20/20 at 20:30; Stop 02/22/20 at 20:29 Fentanyl Citrate (Fentanyl 2ml Vial) 100 mcg STK-MED ONCE .ROUTE ; Start 02/20/20 at 20:26; Stop 02/20/20 at 20:26; Status DC Bivalirudin (Angiomax) 250 mg STK-MED ONCE IV ; Start 02/20/20 at 20:30; Stop 02/20/20 at 20:30; Status DC Iodixanol (Visipaque 320) 100 ml STK-MED ONCE .ROUTE ; Start 02/20/20 at 20:36; Stop 02/20/20 at 20:36; Status DC Bivalirudin (Angiomax) 250 mg 1X ONCE IV Last administered on 02/20/20at 20:13; Start 02/20/20 at 20:45; Stop 02/20/20 at 20:46; Status DC Bivalirudin (Angiomax) 250 mg 1X ONCE IV Last administered on 02/20/20at 20:34; Start 02/20/20 at 21:00; Stop 02/20/20 at 21:01; Status DC Sodium Chloride 1,000 ml @ 100 mls/hr Q10H IV Last administered on 02/20/20at 22:13; Start 02/20/20 at 20:59; Stop 02/21/20 at 06:58; Status DC Aspirin (Ecotrin) 81 mg DAILYWBKFT PO Last administered on 02/22/20at 08:51; Start 02/21/20 at 08:00 Ticagrelor (Brilinta) 90 mg BID PO Last administered on 02/22/20at 08:51; Start 02/21/20 at 09:00 Metoprolol Tartrate (Lopressor) 25 mg BID PO Last administered on 02/20/20at 22:12; Start 02/20/20 at 21:00; Stop 02/21/20 at 01:26; Status DC Losartan Potassium (Cozaar) 25 mg DAILY PO Last administered on 02/20/20at 22:13; Start 02/20/20 at 21:00; Stop 02/21/20 at 01:26; Status DC Atorvastatin Calcium (Lipitor) 80 mg QHS PO Last administered on 02/21/20at 20:13; Start 02/20/20 at 21:00 Acetaminophen (Tylenol) 650 mg PRN Q6HRS PRN PO MILD PAIN / TEMP > 100.3'F; Start 02/20/20 at 21:00 Nitroglycerin (Nitrostat) 0.4 mg PRN Q5MIN PRN SL CHEST PAIN; Start 02/20/20 at 21:00 Ticagrelor (Brilinta) 180 mg 1X ONCE PO Last administered on 02/20/20at 21:15; Start 02/20/20 at 21:15; Stop 02/20/20 at 21:16; Status DC Ticagrelor (Brilinta) 90 mg STK-MED ONCE .ROUTE ; Start 02/20/20 at 21:08; Stop 02/20/20 at 21:08; Status DC Labetalol HCl (Normodyne Iv Push) 10 mg PRN Q6HRS PRN IVP HYPERTENSION Last administered on 02/20/20at 22:33; Start 02/20/20 at 22:30 Losartan Potassium (Cozaar) 50 mg DAILY PO Last administered on 02/21/20at 08:44; Start 02/21/20 at 09:00; Stop 02/21/20 at 11:54; Status DC Metoprolol Tartrate (Lopressor) 50 mg BID PO Last administered on 02/22/20at 08:52; Start 02/21/20 at 09:00; Stop 02/22/20 at 09:20; Status DC Metoprolol Tartrate (Lopressor) 50 mg 1X ONCE PO Last administered on 02/21/20at 01:50; Start 02/21/20 at 01:45; Stop 02/21/20 at 01:46; Status DC Losartan Potassium (Cozaar) 50 mg 1X ONCE PO Last administered on 02/21/20at 01:50; Start 02/21/20 at 01:45; Stop 02/21/20 at 01:46; Status DC Insulin Human Lispro (HumaLOG) 0-5 UNITS TIDWMEALS SQ ; Start 02/21/20 at 12:00 Dextrose (Dextrose 50%-Water Syringe) 12.5 gm PRN Q15MIN PRN IV SEE COMMENTS; Start 02/21/20 at 10:15 Losartan Potassium (Cozaar) 100 mg DAILY PO Last administered on 02/22/20at 08:52; Start 02/22/20 at 09:00 Losartan Potassium (Cozaar) 50 mg 1X ONCE PO Last administered on 02/21/20at 12:12; Start 02/21/20 at 12:00; Stop 02/21/20 at 12:02; Status DC Metoprolol Succinate (Toprol Xl) 100 mg DAILY PO ; Start 02/23/20 at 09:00 Furosemide (Lasix) 20 mg DAILY PO ; Start 02/22/20 at 11:00 Potassium Chloride (Klor-Con) 10 meq 1X ONCE PO ; Start 02/22/20 at 11:00; Stop 02/22/20 at 11:01; Status DC Potassium Chloride (Klor-Con) 10 meq DAILYWBKFT PO ; Start 02/23/20 at 08:00 Active Scripts Active Reported No Known Medications Prior To Admisstion (Info) Each 1 Each 1X Vital Signs Vital Signs Date Time Temp Pulse Resp B/P (MAP) Pulse Ox O2 Delivery O2 Flow Rate FiO2 02/22/20 08:52 87 174/93 02/22/20 08:00 98.9 16 97 Room Air 98.9 Labs Laboratory Tests Test 02/20/20 19:19 02/20/20 22:22 02/21/20 01:09 02/21/20 11:26 White Blood Count 10.7 x10^3/uL (4.0-11.0) 13.6 x10^3/uL (4.0-11.0) Red Blood Count 5.10 x10^6/uL (4.30-5.70) 4.89 x10^6/uL (4.30-5.70) Hemoglobin 14.9 g/dL (13.0-17.5) 14.1 g/dL (13.0-17.5) Hematocrit 43.7 % (39.0-53.0) 42.2 % (39.0-53.0) Mean Corpuscular Volume 86 fL (79-100) 86 fL (79-100) Mean Corpuscular Hemoglobin 29 pg (25-35) 29 pg (25-35) Mean Corpuscular Hemoglobin Concent 34 g/dL (31-37) 33 g/dL (31-37) Red Cell Distribution Width 14.6 % (11.5-14.5) 14.5 % (11.5-14.5) Platelet Count 503 x10^3/uL (140-400) 463 x10^3/uL (140-400) Neutrophils (%) (Auto) 60 % (31-73) 70 % (31-73) Lymphocytes (%) (Auto) 26 % (24-48) 18 % (24-48) Monocytes (%) (Auto) 10 % (0-9) 9 % (0-9) Eosinophils (%) (Auto) 4 % (0-3) 2 % (0-3) Basophils (%) (Auto) 1 % (0-3) 1 % (0-3) Neutrophils # (Auto) 6.4 x10^3/uL (1.8-7.7) 9.5 x10^3/uL (1.8-7.7) Lymphocytes # (Auto) 2.8 x10^3/uL (1.0-4.8) 2.5 x10^3/uL (1.0-4.8) Monocytes # (Auto) 1.0 x10^3/uL (0.0-1.1) 1.2 x10^3/uL (0.0-1.1) Eosinophils # (Auto) 0.4 x10^3/uL (0.0-0.7) 0.2 x10^3/uL (0.0-0.7) Basophils # (Auto) 0.1 x10^3/uL (0.0-0.2) 0.1 x10^3/uL (0.0-0.2) Prothrombin Time 12.9 SEC (11.7-14.0) Prothromb Time International Ratio 1.0 (0.8-1.1) Activated Partial Thromboplast Time 31 SEC (24-38) Sodium Level 140 mmol/L (136-145) 136 mmol/L (136-145) Potassium Level 4.0 mmol/L (3.5-5.1) 3.9 mmol/L (3.5-5.1) Chloride Level 102 mmol/L (98-107) 100 mmol/L (98-107) Carbon Dioxide Level 27 mmol/L (21-32) 24 mmol/L (21-32) Anion Gap 11 (6-14) 12 (6-14) Blood Urea Nitrogen 12 mg/dL (8-26) 11 mg/dL (8-26) Creatinine 1.1 mg/dL (0.7-1.3) 0.8 mg/dL (0.7-1.3) Estimated GFR (Cockcroft-Gault) 74.5 107.6 BUN/Creatinine Ratio 11 (6-20) Glucose Level 181 mg/dL (70-99) 108 mg/dL (70-99) Calcium Level 9.8 mg/dL (8.5-10.1) 9.2 mg/dL (8.5-10.1) Magnesium Level 2.2 mg/dL (1.8-2.4) Total Bilirubin 0.2 mg/dL (0.2-1.0) Aspartate Amino Transf (AST/SGOT) 23 U/L (15-37) Alanine Aminotransferase (ALT/SGPT) 34 U/L (16-63) Alkaline Phosphatase 56 U/L (46-116) Troponin I Quantitative 1.991 ng/mL (0.000-0.055) 16.442 ng/mL (0.000-0.055) 33.819 ng/mL (0.000-0.055) MP-Yfm-A-Type Natriuretic Peptide 276 pg/mL (0-124) Total Protein 8.0 g/dL (6.4-8.2) Albumin 4.1 g/dL (3.4-5.0) Albumin/Globulin Ratio 1.1 (1.0-1.7) Lipase 133 U/L (73-393) SARS-CoV-2 Antigen (Rapid) Negative (NEGATIVE) Hemoglobin A1c 6.0 % (4.8-5.6) Triglycerides Level 302 mg/dL (0-150) Cholesterol Level 154 mg/dL (0-200) LDL Cholesterol, Calculated 57 mg/dL (0-100) VLDL Cholesterol, Calculated 60 mg/dL (0-40) Non-HDL Cholesterol Calculated 117 mg/dL (0-129) HDL Cholesterol 37 mg/dL (40-60) Cholesterol/HDL Ratio 4.2 Urine Collection Type Unknown Urine Color Yellow Urine Clarity Cloudy Urine pH 8.0 (<5.0-8.0) Urine Specific [place] 1.015 (1.000-1.030) Urine Protein Negative mg/dL (NEG-TRACE) Urine Glucose (UA) Negative mg/dL (NEG) Urine Ketones (Stick) Negative mg/dL (NEG) Urine Blood Negative (NEG) Urine Nitrite Negative (NEG) Urine Bilirubin Negative (NEG) Urine Urobilinogen Dipstick 0.2 mg/dL (0.2 mg/dL) Urine Leukocyte Esterase Negative (NEG) Urine RBC 0 /HPF (0-2) Urine WBC 0 /HPF (0-4) Urine Squamous Epithelial Cells Occ /LPF Urine Bacteria 0 /HPF (0-FEW) Urine Mucus Slight /LPF Urine Opiates Screen Neg (NEG) Urine Methadone Screen Neg (NEG) Urine Barbiturates Neg (NEG) Urine Phencyclidine Screen Neg (NEG) Urine Amphetamine/Methamphetamine Neg (NEG) Urine Benzodiazepines Screen Neg (NEG) Urine Cocaine Screen Neg (NEG) Urine Cannabinoids Screen Neg (NEG) Urine Ethyl Alcohol Neg (NEG) Test 02/21/20 11:50 02/21/20 15:27 Glucose (Fingerstick) 107 mg/dL (70-99) 92 mg/dL (70-99) Laboratory Tests Test 02/21/20 11:26 02/21/20 11:50 02/21/20 15:27 Urine Collection Type Unknown Urine Color Yellow Urine Clarity Cloudy Urine pH 8.0 (<5.0-8.0) Urine Specific [place] 1.015 (1.000-1.030) Urine Protein Negative mg/dL (NEG-TRACE) Urine Glucose (UA) Negative mg/dL (NEG) Urine Ketones (Stick) Negative mg/dL (NEG) Urine Blood Negative (NEG) Urine Nitrite Negative (NEG) Urine Bilirubin Negative (NEG) Urine Urobilinogen Dipstick 0.2 mg/dL (0.2 mg/dL) Urine Leukocyte Esterase Negative (NEG) Urine RBC 0 /HPF (0-2) Urine WBC 0 /HPF (0-4) Urine Squamous Epithelial Cells Occ /LPF Urine Bacteria 0 /HPF (0-FEW) Urine Mucus Slight /LPF Urine Opiates Screen Neg (NEG) Urine Methadone Screen Neg (NEG) Urine Barbiturates Neg (NEG) Urine Phencyclidine Screen Neg (NEG) Urine Amphetamine/Methamphetamine Neg (NEG) Urine Benzodiazepines Screen Neg (NEG) Urine Cocaine Screen Neg (NEG) Urine Cannabinoids Screen Neg (NEG) Urine Ethyl Alcohol Neg (NEG) Glucose (Fingerstick) 107 mg/dL (70-99) 92 mg/dL (70-99) Allergies Allergies Coded Allergies Type Severity Reaction Last Updated Verified No Known Drug Allergies 02/20/20 No Disposition/Orders: D/C to Home Justicifation of Admission Dx: Justifications for Admission: Justification of Admission Dx: Yes AK: Acute STEMI SIVA FIELDS MD Feb 22, 2020 11:12
[2020-02-22] MEDS ORDERED: NITR0.4T24 SL (11:16)
[2020-02-22] MEDS ORDERED: TICA90TA PO (11:16)
[2020-02-22] MEDS ORDERED: FURO20TA3 PO (11:16)
[2020-02-22] MEDS ORDERED: METO-247 PO (11:16)
[2020-02-22] MEDS ORDERED: POTA10TA12 PO (11:16)
[2020-02-22] MEDS ORDERED: ASPI-886 PO (11:16)
[2020-02-22] MEDS ORDERED: ACET325T9 PO (11:16)
[2020-02-22] MEDS ORDERED: ATOR40TA59 PO (11:16)
[2020-02-22] MEDS ORDERED: LOSA-73 PO (11:16)
--- NOTE | 2020-02-22 11:17 | DISCH ---
DISCHARGE INSTRUCTIONS Condition on Discharge Condition on Discharge: Stable Activity After Discharge Activity Instructions for Disc: Activity as tolerated Other activity instructions: see post cardiac cath instructions Lifting Instructions after Dis: No heavy lifting, No pulling or pushing Driving Instructions after Dis: Do not drive today Weight Bearing Status after Di: As tolerated Diet after Discharge Diet after Discharge: Cardiac, Low Sodium 2 gm Wound Incision Care Other wound/incision instructi: see post cardiac cath instructions Checks after Discharge Checks after discharge: Check blood press - daily Contacting the DR. after DC Call your doctor for: If your condition worsens Follow-Up Follow up with: Primary Care Physician in 1-2 weeks Follow Up With: Cardiology as scheduled in April Treatment/Equipment after DC Adaptive Equipment Issued: None SIVA FEILDS MD Feb 22, 2020 11:17
--- NOTE | 2020-02-22 11:49 | NUR ---
SS following for discharge planning. SS reviewed pt chart and discussed with pt RN. Pt is from home with spouse and is currently on room air. Order for [facility] received. SS phoned and faxed order and clinical to [facility], ; fax [phone]. Discharge order on the chart for home with self care. Per Cardiology, pt can be fitted for Life Vest at home. Pt's RN notified.
--- NOTE | 2020-02-22 12:16 | NUR ---
Discharge Note: YENNY GOFF Discharge instructions and discharge home medications reviewed with Patient and a copy given. All questions have been answered and understanding verbalized. Prescription sent to patient pharmacy by physician. All education discussed with patient and spouse. Life vest to fit patient at home. Pt and verablized understanding.
[2020-02-23] MEDS ORDERED: POTASSIUM CHLORIDE 10 MEQ TABLET.ER. PO SCH (08:00)
[2020-02-23] MEDS ORDERED: METOPROLOL SUCC 24HR ER 100 MG TAB.ER.24H. PO SCH (09:00)
== END 2020-02-22 11:48 | disposition home or self-care (01) | DRG 246 ==
LOC: ER 19:13 → CVICU 20:54
PROVIDERS: ADMIT Internal Medicine; ATTEND Internal Medicine
PROC: 4A023N7 Measurement of Cardiac Sampling and Pressure, Left Heart, Percutaneous Approach (ICD-10-PCS; principal; 2020-02-20)
PROC: 027135Z Dilation of Coronary Artery, Two Arteries with Two Drug-eluting Intraluminal Devices, Percutaneous Approach (ICD-10-PCS; 2020-02-20)
PROC: B2111ZZ Fluoroscopy of Multiple Coronary Arteries using Low Osmolar Contrast (ICD-10-PCS; 2020-02-20)
PROC: B2151ZZ Fluoroscopy of Left Heart using Low Osmolar Contrast (ICD-10-PCS; 2020-02-20)
DX: I21.02 ST elevation (STEMI) myocardial infarction involving left anterior descending coronary artery (principal); I50.43 Acute on chronic combined systolic (congestive) and diastolic (congestive) heart failure; E66.01 Morbid (severe) obesity due to excess calories; Z68.34 Body mass index [BMI] 34.0-34.9, adult; E78.5 Hyperlipidemia, unspecified; F17.210 Nicotine dependence, cigarettes, uncomplicated; I11.0 Hypertensive heart disease with heart failure; I25.10 Atherosclerotic heart disease of native coronary artery without angina pectoris; I25.5 Ischemic cardiomyopathy; Z82.49 Family history of ischemic heart disease and other diseases of the circulatory system; Z20.828 Contact with and (suspected) exposure to other viral communicable diseases
CPT/HCPCS: 36415; 71045; 80048; 80053; 80061; 80307; 81001; 82962; 83036; 83690; 83735; 83880; 84484; 85025; 85610; 85730; 87426; 92928; 93306; 93458; 96365; 96368; 96375; 96376; 99152; 99153; C1725; C1769; C1874; C1887; C1892; J0583; J1644; J1815; J2250; J3010; J3490; Q9967; U0003; 99285-25; G0378

== ENCOUNTER → 2020-05-30 | Outpatient (CLI) | payer BC ==
[~2020-05-30] MED LIST: ACET325T9 PO; ASPI-886 PO; ATOR40TA59 PO; FURO20TA3 PO; LOSA-73 PO; METO-247 PO; NITR0.4T24 SL; POTA10TA12 PO; TICA90TA PO
--- NOTE | 2020-05-30 19:24 | CARD ---
MR#: [id number] Date of Study: 05/30/2020 Ordering Physician: YAO LEON, Referring Physician: YAO LEON, Tech: Freida Reyes [facility] APPROVED REPORT EXAM: Two-dimensional and M-mode echocardiogram with Doppler and color Doppler. Other Information Quality : AverageHR: 64bpm Technically limited study due to INDICATION Cardiac Disease: CAD RISK FACTORS Hypertension Hyperlipidemia Previous smoker 2D DIMENSIONS RVDd3.3 (2.9-3.5cm)Left Atrium(2D)3.4 (1.6-4.0cm) IVSd1.1 (0.7-1.1cm)Aortic Root(2D)3.8 (2.0-3.7cm) LVDd5.4 (3.9-5.9cm)LVOT Diameter2.3 (1.8-2.4cm) PWd1.1 (0.7-1.1cm)LVDs3.0 (2.5-4.0cm) FS (%) 44.6 %SV108.6 ml LVEF(%)55.3 (>50%) Aortic Valve AoV Peak David.123.8cm/sAoV VTI25.1cm AO Peak GR.6.1mmHgLVOT Peak David.89.8cm/s LVOT VTI 17.29cmAO Mean GR.3mmHg HAILEE (VMAX)2.44sv8EWI (VTI)2.92cm2 Mitral Valve MV E Rrszoqai64.9cm/sMV DECEL [id number] MV A Qcbixnaa36.8cm/sMV [id number] E/A Ratio0.8MVA (PHT)4.33cm2 TDI E/Lateral E'5.3E/Medial E'7.2 Pulmonary Valve PV Peak Inciabce16.4cm/sPV Peak Grad.3mmHg Pulmonary Vein S1 Tysegxva58.8cm/sD2 Pdsjklpr81.6cm/s PVa [id number] LEFT VENTRICLE The left ventricle is normal size. There is borderline to mild concentric left ventricular hypertroph y. The left ventricular systolic function is normal and the ejection fraction is within normal range. EF 55% There is normal LV segmental wall motion. Transmitral Doppler flow pattern is Grade I-abnorma l relaxation pattern. RIGHT VENTRICLE The right ventricle is mildly dilated. There is normal right ventricular wall thickness. The right ve ntricular systolic function is normal. ATRIA The left atrium size is normal. The right atrium size is normal. The interatrial septum is intact wit h no evidence for an atrial septal defect or patent foramen ovale as noted on 2-D or Doppler imaging. AORTIC VALVE The aortic valve is normal in structure and function. Doppler and Color Flow revealed no significant aortic regurgitation. There is no significant aortic valvular stenosis. Calculated aortic valve area is 3.65 cm2 with maximum pressure gradient of 7 mmHg and mean pressure gradient of 4 mmHg. MITRAL VALVE The mitral valve is normal in structure and function. There is no evidence of mitral valve prolapse. There is no mitral valve stenosis. Doppler and Color Flow revealed no mitral valve regurgitation note d. TRICUSPID VALVE The tricuspid valve is normal in structure and function. Doppler and Color Flow revealed no tricuspid valve regurgitation noted. There is no tricuspid valve stenosis. PULMONIC VALVE The pulmonic valve is not well visualized. Doppler and Color Flow revealed trace pulmonic valvular re gurgitation. There is no pulmonic valvular stenosis. GREAT VESSELS The aortic root is normal in size. The ascending aorta is normal in size. The IVC is normal in size a nd collapses >50% with inspiration. PERICARDIAL EFFUSION There is no evidence of significant pericardial effusion. Critical Notification Critical Value: No <Conclusion> The left ventricular systolic function is normal and the ejection fraction is within normal range. EF 55% There is normal LV segmental wall motion. Signed by : Aden Horowitz, Electronically Approved : 05/30/2020 19:23:51
== END ==
LOC: ECHO 09:56
PROVIDERS: ATTEND Internal Medicine Cardiovascular Disease
DX: I51.7 Cardiomegaly (principal); I25.10 Atherosclerotic heart disease of native coronary artery without angina pectoris
CPT/HCPCS: 93306

== ENCOUNTER 2020-09-18 03:19 | Emergency (ER) | payer BC ==
[~2020-09-18] VITALS: Ht 188 cm; Wt 126.5 kg
[2020-09-18 03:30] VITALS: BP 160/96
[2020-09-18] MEDS ORDERED: MORPHINE SULFATE 2 MG/ML VIAL. IM ONE (04:15)
[2020-09-18] MEDS ORDERED: CYCLOBENZAPRINE 10 MG TABLET. PO ONE (04:15)
[2020-09-18] MEDS ORDERED: TRAM-48 PO (04:37)
[2020-09-18] MEDS ORDERED: CYCL10TA2 PO (04:37)
--- NOTE | 2020-09-18 04:37 | PHYS DOC ---
Past Medical History Past Medical History: CAD, Hypertension, [place] Past Surgical History: Other Additional Past Surgical Histo: Cardiac stents placed 02/2020 Smoking Status: Current Every Day Smoker Alcohol Use: Occasionally General Adult EDM: Chief Complaint: NECK PAIN HPI: HPI: Patient is a 40 year old male past medical history coronary artery disease presents with a chief complaint of right-sided neck pain. Patient states neck pain started 3 months ago shortly after cardiac catheterization with stent placement. Initially pain would come and go. Patient states pain has become more frequent over the last few days has been constant. Patient has difficulty moving his neck from side to side due to his pain. Patient was evaluated by primary care physician and placed on topical NSAID. Patient states he has had no relief with this medication and feels that his pain is been getting worse. Review of Systems: Review of Systems: Review of systems: Constitutional symptoms- No fever, no chills. Eyes- No Discharge, No Visual Loss Respiratory symptoms- No shortness of breath, No wheezing, No Dyspnea on Exertion Cardiovascular Systems; No chest pain, No Palpitations, No syncope Gastrointestinal symptoms: NO abdominal pain, no nausea, no vomiting or diarrhea. Genitourinary symptoms: No dysuria. Musculoskeletal symptoms: No back pain No extremity pain. Positive neck pain NEUROLOGICAL Symptoms: No headache, no generalized weakness; No focal Weakness Heart Score: C/O Chest Pain: N/A Risk Factors: Risk Factors: DM, Current or recent (<one month) smoker, HTN, HLP, family history of CAD, obesity. Risk Scores: Score 0 - 3: 2.5% MACE over next 6 weeks - Discharge Home Score 4 - 6: 20.3% MACE over next 6 weeks - Admit for Clinical Observation Score 7 - 10: 72.7% MACE over next 6 weeks - Early Invasive Strategies Current Medications: Current Medications Medications (Trade) Dose Ordered Sig/Danny Start Time Stop Time Status Last Admin Dose Admin Cyclobenzaprine HCl (Flexeril) 10 mg 1X ONCE 09/18/20 04:15 09/18/20 04:16 DC 09/18/20 04:10 10 MG Morphine Sulfate (Morphine Sulfate) 2 mg 1X ONCE 09/18/20 04:15 09/18/20 04:16 DC 09/18/20 04:11 2 MG Allergies: Allergies: Allergies Coded Allergies Type Severity Reaction Last Updated Verified No Known Drug Allergies 02/20/20 No Physical Exam: PE: General: alert, no acute distress. Skin: warm, dry and intact. Head:: Normocephalic, atraumatic. Neck: Trachea midline. Eyes: EOMI, Normal conjunctiva, No drainage CARDIOVASCULAR: Regular rate and rhythm RESPIRATORY: No respiratory distress Back: Full range of motion. MUSCULOSKELETAL: Full range of motion of bilateral upper and lower extremities. Tenderness palpation right paraspinal C4-C5-C6 along of the trapezium to right shoulder. Limited range of motion of neck rotation no pain midline C-spine no step-off or deformity GASTROINTESTINAL: Abdomen soft without rebound or guarding. NEUROLOGICAL: Alert and noted to person, place and time. No neurological deficits observed Psychiatric: Cooperative. Normal judgment Current Patient Data: Vital Signs: Vital Signs Date Time Temp Pulse Resp B/P (MAP) Pulse Ox O2 Delivery O2 Flow Rate FiO2 09/18/20 04:11 0 97 09/18/20 03:30 98.1 86 160/96 (117) Room Air 98.1 EKG: EKG: [] Radiology/Procedures: Radiology/Procedures: [] Impression: X-ray wet read No acute fractures or dislocation Course & Med Decision Making: Course & Med Decision Making Pertinent Labs and Imaging studies reviewed. (See chart for details) [] Treated with morphine and cyclobenzaprine discharged home on Ultram and cyclobenzaprine. Abhilash Disclaimer: Abhilash Disclaimer: This electronic medical record was generated, in whole or in part, using a voice recognition dictation system. Departure Departure Impression: Primary Impression: Neck pain Disposition: HOME / SELF CARE / HOMELESS Condition: STABLE Patient Instructions: Cervical Sprain, Soft Tissue Injury of the Neck Scripts Tramadol Hcl (ULTRAM) 50 Mg Tablet 1 TAB PO PRN Q6HRS PRN for pain MDD 4 Tablet(s) for 7 Days, #28 TAB 0 Refills Prov: GISEL RODRIGUEZ DO 09/18/20 Cyclobenzaprine Hcl (CYCLOBENZAPRINE HCL) 10 Mg Tablet 1 TAB PO TID, #30 TAB Prov: GISEL RODRIGUEZ DO 09/18/20 GISEL RODRIGUEZ DO Sep 18, 2020 04:37
--- NOTE | 2020-09-18 07:12 | RAD ---
EXAM: AP, lateral and open-mouth odontoid views of the cervical spine DATE: 09/18/2020 4:05 AM CLINICAL HISTORY: Neck pain COMPARISON: None available. FINDINGS: On the lateral view, the cervical spine is imaged from the skull base to C7. Vertebral body heights are preserved. Mild C4-5, C5-6 disc height loss. Straightening of the normal c ervical lordosis. Small posterior endplate proliferative change C4-5, C5-6. No spondylolisthesis. Normal predental space. No significant prevertebral soft tissue swelling. IMPRESSION: 1. Multilevel spondylosis as above 2. Negative acute fracture or subluxation. Electronically signed by: Moses Sofia MD (09/18/2020 7:09 AM) [id number]
== END 2020-09-18 04:48 | disposition home or self-care (01) ==
LOC: ER 03:19
DX: M54.2 Cervicalgia (principal); I10 Essential (primary) hypertension; I25.10 Atherosclerotic heart disease of native coronary artery without angina pectoris; I25.2 Old myocardial infarction; F17.200 Nicotine dependence, unspecified, uncomplicated; Z95.5 Presence of coronary angioplasty implant and graft
CPT/HCPCS: 72040; 96372; 99283; J2270

== ENCOUNTER → 2020-11-19 | Outpatient (CLI) | payer BC ==
[~2020-11-19] MED LIST changes: +CYCL10TA2 PO; +REGADENOSON 0.4 MG/5 ML DISP.SYRIN. IV ONE; +TRAM-48 PO
--- NOTE | 2020-11-19 18:26 | RAD ---
MR#: [id number] Date of Study: 11/19/2020 Ordering Physician: YAO LEON, Referring Physician: DOUG ESTRADA Tech: KARTHIK Abdalla, ARRT (R) (N) APPROVED REPORT Test Type: Pharmacological Stress Nurse/Tech: Claus Newman RN Test Indications: CAD Cardiac History: ID with stents 02/2020, HTN, x-smoker Medications: See Electronic Medical Record Medical History: See Electronic Medical Record Resting ECG: SR Resting Heart Rate: 61 bpm Resting Blood Pressure: 122/81mmHg Pretest Chest Pain: None Nurse/Tech Notes Lungs CTA, S1S2 Consent: The procedure was explained to the patient in lay terms. Informed consent was witnessed. Rei eout was entered into [employer]. History and Stress Test performed by RT Snow (R) (N) Pharm. Details Pharmacologic stress testing was performed using 0.4mg per 5ml of regadenoson given intravenously ove r 7-10 seconds. Stress Symptoms No chest pain or symptoms. POST EXERCISE Reason for Termination: Infusion complete Max HR: 98 bpm Max Blood Pressure: 130/79mmHg Blood Pressure response to exercise: Normal blood pressure response during stress. Heart Rate response to exercise: normal response Chest Pain: No. Arrhythmia: No. ST Change: No. INTERPRETATION Stress EKG Conclusion: The resting EKG shows a sinus rhythm and minimal nonspecific ST segment change s. The stress EKG shows no significant changes from baseline. No EKG evidence of stress-induced ischemia. Imaging Protocol IMAGE PROTOCOL: Rest Tc-99m/stress Tc-99m 1 day Rest: Stress: Viability: Radiopharm.Tc99m [id number] Sestamibi Bmzr62xTg 31mCi Img Date 11/19/2020 11/19/2020 Inj-Img Hexr62nvs. 60min. Rest Admin Site:IV - Right AntecubitalAdministrator:RT Snow (R)(N) Stress Admin Site: IV - Right AntecubitalAdministrator: RT Snow (R)(N) STRESS DATA End Diast. Vol.140.0mlLVEDV index BSA56.0ml End Syst. Vol.56.0mlLVESV index BSA23.0ml Myocardial Kxbd775.0gEject. Jtlcgpux02.0% Stress Scores Regional WT1.00Summed WT6.00 Regional WM0.00Summed WM4.00 LV Perfusion The stress scans show a small inferior defect. The rest scans show a slightly larger inferior defect. Nuclear imaging shows no reversible ischemia. Nuclear imaging shows a relatively small fixed inferior defect which is most consistent with a techni alpa artifact. Wall Motion Left ventricular systolic function shows an ejection fraction of 56% with a slight septal wall motion abnormality. LV Perf. Quant 17 Seg. SSS1.00 17 Seg. SRS5.00 17 Seg. SDS0.00 Stress Defect Extent (% LAD)0.60Rest Defect Extent (% LAD)3.80Rev. Defect Extent (% LAD)0.60 Stress Defect Extent (% LCX) 0.00Rest Defect Extent (% LCX)0.00Rev. Defect Extent (% LCX)0.00 Stress Defect Extent (% RCA)6.70Rest Defect Extent (% RCA)23.30Rev. Defect Extent (% RCA)4.40 Stress Defect Extent (% JONATHAN)3.50Rest Defect Extent (% JONATHAN)7.20Rev. Defect Extent (% JONATHAN)2.20 Conclusion 1. No EKG evidence of stress-induced ischemia. 2. Nuclear imaging shows no reversible ischemia. 3. Nuclear imaging shows an inferior wall defect which is most prominent on rest images. This is mos t consistent with a technical artifact. 4. Left ventricular ejection fraction is 56% with a minimal septal wall motion abnormality. 5. Moderate to moderately low risk Lexiscan nuclear stress test with no evidence of reversible ischem ia and an ejection fraction of 56%. Signed by : Thuan Franklin MD Electronically Approved : 11/19/2020 18:26:30
== END ==
LOC: NM 08:37
PROVIDERS: ATTEND Internal Medicine Cardiovascular Disease
DX: I25.10 Atherosclerotic heart disease of native coronary artery without angina pectoris (principal)
CPT/HCPCS: 78452; 93017; A9500; J2785

== ENCOUNTER → 2021-06-21 | Outpatient (CLI) | payer BC ==
[~2021-06-21] MED LIST changes: +CYCL10TA19 PO; -CYCL10TA2 PO; -REGADENOSON 0.4 MG/5 ML DISP.SYRIN. IV ONE
--- NOTE | 2021-06-21 17:26 | CARD ---
MR#: [id number] Date of Study: 06/21/2021 Ordering Physician: YAO GALDAMEZ, Referring Physician: YAO GALDAMEZ, Tech: APPROVED REPORT EXAM: Two-dimensional and M-mode echocardiogram with Doppler and color Doppler. INDICATION Cardiac Disease: CAD RISK FACTORS Hypertension Obesity Hyperlipidemia 2D DIMENSIONS RVDd3.2 (2.9-3.5cm)Left Atrium(2D)3.6 (1.6-4.0cm) IVSd0.9 (0.7-1.1cm)Aortic Root(2D)3.6 (2.0-3.7cm) LVDd5.2 (3.9-5.9cm)LVOT Diameter2.4 (1.8-2.4cm) PWd1.0 (0.7-1.1cm)LVDs3.2 (2.5-4.0cm) FS (%) 37.4 %SV85.8 ml LVEF(%)67.0 (>50%) Aortic Valve AoV Peak David.133.9cm/sAoV VTI23.2cm AO Peak GR.7.2mmHgLVOT Peak David.94.9cm/s AO Mean GR.4mmHgAVA (VMAX)3.17cm2 Mitral Valve MV E Ohjooyfh29.0cm/sMV DECEL GZUM032lv MV A Fpupjpqy66.1cm/sE/A Ratio1.1 Pulmonary Valve PV Peak Dfsunhep67.7cm/s LEFT VENTRICLE The left ventricle is normal size. There is normal left ventricular wall thickness. The left ventricu lar systolic function is normal. The ejection fraction is 55%. There is normal LV segmental wall jensen on. Transmitral Doppler flow pattern is Grade I-abnormal relaxation pattern. RIGHT VENTRICLE The right ventricle is normal size. There is normal right ventricular wall thickness. The right ventr icular systolic function is normal. ATRIA The left atrium size is normal. The right atrium size is normal. The interatrial septum is intact wit h no evidence for an atrial septal defect or patent foramen ovale as noted on 2-D or Doppler imaging. AORTIC VALVE The aortic valve is normal in structure and function. Doppler and Color Flow revealed no significant aortic regurgitation. There is no significant aortic valvular stenosis. MITRAL VALVE The mitral valve is normal in structure and function. There is no evidence of mitral valve prolapse. There is no mitral valve stenosis. Doppler and Color Flow revealed no mitral valve regurgitation note d. TRICUSPID VALVE The tricuspid valve is normal in structure and function. Doppler and Color Flow revealed no tricuspid valve regurgitation noted. There is no tricuspid valve stenosis. PULMONIC VALVE The pulmonary valve is normal in structure and function. Doppler and Color Flow revealed no pulmonic valvular regurgitation. GREAT VESSELS The aortic root is normal in size. The ascending aorta is normal in size. The IVC is normal in size a nd collapses >50% with inspiration. PERICARDIAL EFFUSION There is no evidence of significant pericardial effusion. Critical Notification Critical Value: No <Conclusion> The left ventricular systolic function is normal. The ejection fraction is 55%. There is normal LV segmental wall motion. There is no evidence of significant pericardial effusion. Signed by : Yao Galdamez, Electronically Approved : 06/21/2021 17:25:45
== END ==
LOC: ECHO 13:07
PROVIDERS: ATTEND Internal Medicine Cardiovascular Disease
DX: I25.10 Atherosclerotic heart disease of native coronary artery without angina pectoris (principal)
CPT/HCPCS: 93306; C8929